=== PATIENT | female | born 1950 | race African-American/Black ===

== ENCOUNTER 2016-06-15 14:14 | Emergency (ER) | payer MEDICARE ==
[2016-05-28 08:36] VITALS: BMI 23.3
[~2016-06-15 14:14] MED LIST: ADVAIR 500/501 DISK INH; BAYER CHEWABLE81 MG PO; BENZONATATE200 MG PO; BUTALB-APAP-CA1 EACH PO; CARDIZEM CD120 MG PO; CHILDREN'S ASPI81 MG PO; COUMADIN5 MG PO; CRESTOR10 MG PO; CYCLOBENZAPRINE10 MG PO; FLUTICASONE PRO16 GM NASAL; FUROSEMIDE20 MG PO; HYDROCODONE-APA1 TAB PO; ISOSORBIDE MONO30 M1 PO; LEVAQUIN500 MG PO; LISINOPRIL-HCTZ1 T11 PO; METOPROLOL TART50 MG PO; MUCINEX DM ER1 EAC1 PO; NAMENDA10 MG PO; NITROSTAT0.4 MG SL; PLAVIX75 MG PO; PROTONIX40 MG PO; PROVENTIL/2.5 MG/3 M INH; SINGULAIR10 MG PO; SPIRIVA18 MCG INH; ZESTRIL20 MG PO
[2016-06-15 15:12] LABS: BASOPHILS 0.4 % (0.0-2.0); EOSINOPHILS 0.9 % (0-7); HEMATOCRIT 40.1 % (36.0-48.0); HEMOGLOBIN 13.5 g/dL (12-16); IMMATURE GRANULOCYTES 0.3 % (0-5); LYMPHOCYTES 28.7 % (15-50); MCH 29.9 pg (26.0-34.0); MCHC 33.7 g/dL (31.0-37.0); MCV 88.9 fL (80.0-100.0); MEAN PLATELET VOLUME 12.7 fL (7.4-10.4); MONOCYTES 9.5 % (2-11); NEUTROPHILS 60.2 % (40-80); PLATELET COUNT 215 10x3/uL (130-400); RBC 4.51 10x6/uL (4.00-5.40); RDW 13.4 % (11.5-14.5); WBC 6.7 10x3/uL (4.8-10.8)
[2016-06-15 16:31] LABS: ALBUMIN 3.1 g/dL (3.4-5.0); ALKALINE PHOSPHATASE 83 U/L (46-116); ALT (SGPT) 22 U/L (10-68); BILIRUBIN - TOTAL 0.25 mg/dL (0.2-1.3); CALC OSMOLALITY 277 mosm/kg (275-300); CALCIUM 8.9 mg/dL (8.5-10.1); CHLORIDE - SERUM 102 mmol/L (98-107); CHOL - HDL RATIO 2.1 ratio (2.3-4.1); CHOLESTEROL, TOTAL 131 mg/dL (0-200); CKMB 0.6 U/L (0.0-3.6); CREATINE KINASE 56 UL (21-215); CREATININE - SERUM 0.7 mg/dL (0.6-1.3); GLUCOSE 89 mg/dL (74-106); HDL CHOLESTEROL 64 mg/dL (32-96); LDL CHOLESTEROL 58 mg/dL (0-100); LDL-HDL RATIO 0.9 ratio (1.5-3.5); PROTEIN - SERUM 7.3 g/dL (6.4-8.2); SODIUM 141 mmol/L (136-145); TRIGLYCERIDE 49 mg/dL (30-200); TROPONIN-I 0.055 ng/mL (0.000-0.060); UREA NITROGEN 8 mg/dL (7-18); eGFR NON AFRICAN AMERICAN 88 mL/min (90-120)
[2016-06-15 16:32] LABS: POTASSIUM - SERUM 2.7 mmol/L (3.5-5.1)
== END 2016-06-15 17:25 | disposition home or self-care (01) ==
LOC: D.ER 14:14
PROVIDERS: Emergency Medicine
DX: R07.9 Chest pain, unspecified (principal); I25.10 Atherosclerotic heart disease of native coronary artery without angina pectoris; J44.9 Chronic obstructive pulmonary disease, unspecified; R00.1 Bradycardia, unspecified; F17.200 Nicotine dependence, unspecified, uncomplicated; I49.1 Atrial premature depolarization

== ENCOUNTER 2016-08-13 08:22 | Inpatient (IN) | payer MEDICARE, MEDICAID ==
[~2016-08-13] VITALS: Ht 157.5 cm; Wt 63.3 kg
--- NOTE | ~2016-08-13 | HEMODYNAMI ---
PATIENT:WINNIE LEE MEDICAL RECORD: [id number] : 48 [facility] [id number] ADMISSION DATE: 08/13/16 Generatedon:08/13/201613:26 Patient name: WINNIE LEE Patient #: [id number] SSN: [id number] : 1950 Date of study: 08/13/2016 Page: Of Hemodynamic Procedure Report Patient Data Patient Demographics Procedure consent was obtained First Name: WINNIE Gender: Female Last Name: ROSA : 1950 [facility] Initial: STACIE Age: 66 year(s) Patient #: [id number] Race: Black SSN: [id number] Additional ID: [id number] Contact details Address: [address] [place] [address] State: [place] City: [facility] Zip code: [address] Past Medical History History of disease Date Diagnosis Comments CAD COPD Hypertension Allergies Allergen Reaction Date Comments Reported Other allergy 10/19/2015 Prednisone, Tomato Other allergy 05/25/2016 tomatos Other allergy 05/28/2016 prednisone, tomatoes Other allergy 08/13/2016 Prednisone,Tomatoes Admission Admission Data Admission Date: 08/13/2016 Admission Time: 11:07 Arrival Date: 08/13/2016 Arrival Time: 0:00 Admit Source: Other Insurance Payor: Medicare Room #: D.2114 Height (in.): 61.81 BSA: 1.58 (m2) Height (cm.): 157 BMI: 23.55 (kg/m2) Weight (lbs.): 128 Weight (kg.): 58.06 Lab Results Lab Result Date: 08/13/2016 Lab Result Time: 0:00 Biochemistry Name Units Result Min Max BUN mg/dl 11 --(-*--)-- 7 18 Creatinine mg/dl 0.7 --(*---)-- 0.6 1.3 CBC Name Units Result Min Max Hemoglobin g/dl 12.7 -*(----)-- 13.5 17.5 Procedure Procedure Types Cath Procedure Diagnostic Procedure [facility] w/Coronaries FFR/IVUS Intra-Coronary IVUS Initial PCI Procedure Coronary Stent Initial Miscellaneous Procedures Moderate Sedation up to 15 minutes Procedure Description Procedure Date Procedure Date: 08/13/2016 Procedure Start Time: 13:04 Procedure End Time: 13:23 Procedure Staff Name Function Spencer Galvan MD Performing Physician Paulo Acosta RT Scrub Maggie Lucas RN Nurse Tracy Saldana RT Monitor Procedure Data Cath Procedure Fluoroscopy Diagnostic fluoroscopy Total fluoroscopy Time: 3.3 time: 3.3 min min Diagnostic fluoroscopy Total fluoroscopy dose: 600 dose: 600 mGy mGy Contrast Material Contrast Material Type Amount (ml) Isovue 300 90 Entry Location Entry Primary Successful Side Size Upsize Upsize Entry Closure Succes sful Closure Location (Fr) 1 (Fr) 2 (Fr) Remarks Device Remarks Femoral Right 5 Fr 6 Fr Exoseal artery Short Estimated blood loss: 10 ml Diagnostic catheters Device Type Used For End Catheter Placement Cordis 5Fr Pigtail Procedure Catheter (MP) Cordis 5Fr JL 4.0 Left Coronary Catheter (MP) Angiography Cordis 5Fr 3DRC Catheter Procedure (MP) Procedure Complications No complications Procedure Medications Medication Administration Route Dosage Oxygen NC 2 l/min Lidocaine 2% added to field 20 Heparin Flush Bag added to field 2 bags (1000units/500ml NS) 0.9% NaCl I.V. 100 ml/hr Radial Cocktail added to field 1 syringe (Verapomil 2mg/Nitro 400mcg/Heparin 1500units) Versed I.V. 1 mg Fentanyl I.V. 50 mcg Versed I.V. 1 mg Fentanyl I.V. 50 mcg Versed I.V. 1 mg Fentanyl I.V. 50 mcg Heparin Bolus I.V. 4000 units Hemodynamics Rest BSA: 1.58 (m2) HGB: 12.7 (g/dl) O2 Consumption: Estimated: 146.44 (ml/min) O2 Co nsumption indexed: Estimated:92.68 (ml/min/m) Heart Rate: 69 (bpm) Snapshots Pre Cath Intra NCS Post Cath Vital Signs Time Heart Resp SPO2 etCO2 RU5skdy NIBP (mmHg) Rhythm Pain Sedation Rate (ipm) (%) (mmHg) (mmHg) Status Level (bpm) 12:46:20 67 24 96 0 0 Measuring NSR 0 (11) 10(A) , No pain 12:46:36 67 19 94 0 0 178/90(150) NSR 0 (11) 10(A) , No pain 12:51:00 54 17 98 0 0 174/76(137) NSR 0 (11) 10(A) , No pain 12:55:22 60 17 97 0 0 137/75(93) NSR 0 (11) 10(A) , No pain 12:59:32 57 16 98 0 0 123/73(87) NSR 0 (11) 10(A) , No pain 13:03:38 58 18 98 0 0 108/67(85) NSR 0 (11) 10(A) , No pain 13:07:35 53 16 97 0 0 98/84(91) NSR 0 (11) 9(A) , No pain 13:11:33 62 17 97 0 0 117/69(92) NSR 0 (11) 9(A) , No pain 13:15:41 62 16 97 0 0 104/62(78) NSR 0 (11) 9(A) , No pain 13:19:43 64 16 96 0 0 103/64(85) NSR 0 (11) 10(A) , No pain Medications Time Medication Route Dose Verified Delivered Reason Note s Effectiveness by by 12:51:40 Lidocaine 2% added 20ml Spencer Palmer for local to vial Cole Galvan MD anesthetic field 12:51:41 Oxygen NC 2 l/min Spencer Buffie used for Cole Lucas RN procedure 12:51:48 Heparin Flush added 2 bags Spencer Palmer used for Bag to Cole Galvan MD procedure (1000units/500ml field NS) 12:51:53 0.9% NaCl I.V. 100 Spencervandana Serrano Per physician ml/hr Cole Lucas RN 13:00:51 Radial Cocktail added 1 Spencer Palmer not used (Verapomil to syringe Cole Galvan MD 2mg/Nitro field 400mcg/Heparin 1500units) 13:01:10 Versed I.V. 1 mg Spencer Serrano for sedation Cole Lucas RN 13:01:17 Fentanyl I.V. 50 mcg Spencer Serrano for sedation Cole Lucas RN 13:05:23 Versed I.V. 1 mg Spencer Serrano for sedation Cole Lucas RN 13:05:29 Fentanyl I.V. 50 mcg Spencer Serrano for sedation Cole Lucas RN 13:08:24 Versed I.V. 1 mg Spencer Serrano for sedation Cole Lucas RN 13:08:29 Fentanyl I.V. 50 mcg Spencer Serrano for sedation Cole Lucas RN 13:11:14 Heparin Bolus I.V. 4000 Spencer Serrano for veri fied units Cole Lucas RN anticoagulation with dr galvan Procedure Log Time Note 12:17:33 Diagnostic Cath status Elective 12:17:40 Maggie Lucas RN sent for patient. Start room use. 12:17:42 Time tracking: Regular hours 12:17:47 Plan of Care:Hemodynamics will remain stable., Cardiac rhythm will remain stable., Comfort level will be maintained., Respiratory function will remain adequate., Patient/ family verbilizes understanding of procedure., Procedure tolerated without complication., Recovers from procedure without complications.. 12:17:54 Patient received from Med II to CCL 1 Alert and oriented. Tansferred to table in Supine position. 12:36:20 Patient allergic to Other allergyPrednisone,Tomatoes 12:36:27 Warm blankets applied, and stephanie hugger turned on for patient comfort. 12:36:28 Correct patient and procedure confirmed by team. 12:36:30 Signed procedure consent form obtained from patient. 12:36:31 ECG and BP/O2 sat monitors applied to patient. 12:36:31 Vital chart was started 12:37:16 Baseline sample Acquired. 12:37:23 Rhythm: sinus rhythm 12:37:30 Full Disclosure recording started 12:38:35 H&P Date Dictated: 08/13/2016 New H&P dictated by physician.. 12:38:36 Pre-procedure instructions explained to patient. 12:38:37 Pre-op teaching completed and patient verbalized understanding. 12:38:38 Family in waiting room. 12:38:40 Patient NPO since Midnight. 12:38:43 Is the patient allergic to Iodine/contrast media? No. 12:38:45 Was the patient premedicated? No 12:39:50 Is patient on blood thinner?Yes 12:39:53 ACC The patient was administered the following blood thiners within the last 24 hours: ACCPlavix 12:39:57 Patient diabetic? No. 12:40:05 Previous problem with sedation/anesthesia? No ? 12:40:07 Snore? Yes 12:40:12 Sleep apnea? No 12:43:09 Deviated septum? No 12:44:08 Patient Weight : 128 lbs 12:44:14 Patient Height : 61.81 inches 12:44:22 Admit Source: Other 12:44:39 Airway obstruction? Yes COPD 12:44:52 Dentures? Yes out 12:45:09 Patient pain scale 0/10 ?. 12:45:48 IV patent on arrival in right forearm with 0.9% NaCl at [facility]. 12:46:23 Lab Result : Creatinine 0.7 mg/dl 12:46:23 Lab Result : BUN 11 mg/dl 12:46:23 Lab Result : Hemoglobin 12.7 g/dl 12:46:27 Lab results completed and on chart. 12:46:31 Right Radial & Right Groin area was prepped with chlora-prep and draped in sterile fashion 12:46:33 Alarms reviewed by R. N. 12:46:34 Alarms reviewed by R. N. 12:46:40 Sharps counted by scrub and verified by R.N. 12:46:42 Physician paged 12:47:48 Use device set Radial Dx 12:47:50 Acist Syringe opened to sterile field. 12:47:50 Medline Cath Pack opened to sterile field. 12:47:51 Bag Decanter opened to sterile field. 12:47:51 Terumo 6Fr Slender Glidesheath opened to sterile field. 12:47:52 St Isai 260cm J .035 wire opened to sterile field. 12:47:53 Acist Hand Control opened to sterile field. 12:47:53 Acist Manifold opened to sterile field. 12:47:53 Tegaderm 4 x 4 opened to sterile field. 12:51:40 Lidocaine 2% 20ml vial added to field was given by Spencer Galvan MD; for local anesthetic; 12:51:41 Oxygen 2 l/min NC was given by Maggie Lucas RN; used for procedure; 12:51:48 Heparin Flush Bag (1000units/500ml NS) 2 bags added to field was given by Spencer Galvan MD; used for procedure; 12:51:53 0.9% NaCl 100 ml/hr I.V. was given by Maggie Lucas RN; Per physician; 12:58:33 Zero performed for pressure channel P1 12:58:42 Zero performed for pressure channel P1 12:59:10 Physician arrived 12:59:16 --------ALL STOP TIME OUT------ 12:59:17 Final Timeout: patient, procedure, and site verified with staff and physician. All members of the team are in agreement. 12:59:22 Right Radial & Right Groin site verified by team. 12:59:27 Physical assessment completed. ASA score P 2 - A patient with mild systemic disease as per Spencer Galvan MD. 12:59:31 Sedation plan: IV Moderate Sedation Versed, Fentanyl 13:00:51 Radial Cocktail (Verapomil 2mg/Nitro 400mcg/Heparin 1500units) 1 syringe added to field was given by Spencer Galvan MD; ; not used 13:01:10 Versed 1 mg I.V. was given by Maggie Lucas RN; for sedation; 13:01:17 Fentanyl 50 mcg I.V. was given by Maggie Lucas RN; for sedation; 13:03:58 Procedure started. 13:04:06 Local anesthetic to right radial artery with Lidocaine 2% by Spencer Galvan MD.INITIAL ACCESS ONLY 13:04:48 Insurance Payor : Medicare 13:04:51 Arrival Date: 08/13/2016 12:00:00 AM 13:05:09 Procedure type changed to Cath procedure, Diagnostic procedure, LHC, LHC w/Coronaries, FFR/IVUS, Intra-Coronary IVUS Initial, PCI procedure, Coronary Stent Initial, Miscellaneous Procedures, Moderate Sedation up to 15 minutes 13:05:23 Versed 1 mg I.V. was given by Maggie Lucas RN; for sedation; 13:05:29 Fentanyl 50 mcg I.V. was given by Maggie Lucas RN; for sedation; 13:06:10 Local anesthetic to right femoral artery with Lidocaine 2% by Spencer Galvan MD.ADDITIONAL ACCESS 13:07:01 Use device set Multipack Set 13:07:10 Diagnostic Infinity 5Fr Multipack catheter opened to sterile field. 13:07:17 Terumo 5Fr [place]ockley Sheath opened to sterile field. 13:07:29 A 5 Fr sheath was inserted into the Right Femoral artery 13:07:55 A Cordis 5Fr Pigtail Catheter (MP) was advanced over the wire and used for Procedure. 13:08:06 LV angiography performed. 13:08:19 EF : 60 % 13:08:24 Versed 1 mg I.V. was given by Maggie Lucas RN; for sedation; 13:08:29 Fentanyl 50 mcg I.V. was given by Maggie Lucas RN; for sedation; 13:08:32 A Cordis 5Fr JL 4.0 Catheter (MP) was advanced over the wire and used for Left Coronary Angiography. 13:10:34 Catheter removed. 13:10:55 A Cordis 5Fr 3DRC Catheter (MP) was advanced over the wire and used for Procedure. 13:11:14 Heparin Bolus 4000 units I.V. was given by Maggie Lucas RN; for anticoagulation; verified with dr galvan 13:11:29 RCA angiography performed. 13:11:35 Terumo 6Fr Hockley Sheath opened to sterile field. 13:11:36 Palmer Whisper J 300cm 0.014 guide wire opened to sterile field. 13:11:36 ahoyDocixCompak Inflation Kit opened to sterile field. 13:11:39 Proceeding to intervention. 13:11:57 Sheath upsized to a 6 Fr Short. 13:12:12 ACC PCI Site: [facility] has 80% stenosis. 13:12:28 6 Fr XBLAD 3.5 guide catheter was inserted over the wire 13:12:37 Whisper wire advanced. 13:13:08 [place] IVUS Catheter opened to sterile field. 13:14:17 Wire advanced across lesion. 13:14:23 IVUS catheter advanced over wire. 13:15:35 IVUS catheter removed over wire. 13:17:06 Inflation Number: 1 A Medtronic Resolute 3.0 X 22 stent was prepped and advanced across the Mid CX. The stent was deployed at 19 ASHLEY for 0:10 (min:sec). 13:17:12 Inflation number: 2 The stent balloon was then re-inflated across the Mid CX to 19 ASHLEY for 0:00 (min:sec). 13:17:56 Stent catheter was removed intact over wire. 13:17:57 Wire removed. 13:17:58 Guide catheter removed. 13:19:52 Cordis 6Fr Exoseal opened to sterile field. 13:20:09 Sheath removed intact; hemostasis achieved with Exoseal to the Right Femoral artery. 13:20:11 Procedure ended.(Physican Out) 13:20:27 Fluoroscopy time 03.30 minutes. 13:20:45 Fluoroscopy dose: 600 mGy 13:20:45 Flurop Dose total: 600 13:20:52 Contrast amount:Isovue 300 90ml. 13:20:55 Sharps counted by scrub and verified by R.N. 13:21:00 Insertion/operative site no bleeding no hematoma. 13:21:06 Post-op/insertion site Right Femoral artery dressed using a 4 x 4 and Tegaderm. 13:21:09 Post Procedure Pulses reassessed and unchanged 13:21:16 Post-procedure physical assessment completed. ASA score P 3 - A patient with severe systemic disease as per Spencer Galvan MD. 13:21:20 Post procedure rhythm: unchanged. 13:21:24 Estimated blood loss: 10 ml 13:21:26 Post procedure instruction explained to patient.Patient verbalizes understanding. 13:22:07 Procedure and supply charges have been captured, reviewed, submitted and are correct. 13:22:59 Procedure Complication : No complications 13:23:02 Vital chart was stopped 13:23:03 See physician's report for complete and final results. 13:23:07 Report given to [facility]. 13:23:11 Patient transfered to [facility] II with Stretcher. 13:23:13 Procedure ended. 13:23:13 Full Disclosure recording stopped 13:23:17 End room use (Document Last) Intervention Summary Intervention Notes Time ActionType Lesion and Equipment Action# Pressure Duration Attributes Used 13:17:06 Place stent Mid CX Medtronic 1 19 00:10 Resolute 3.0 X 22 stent 13:17:12 Reinflate Mid CX Medtronic 2 19 00:00 stent Resolute balloon 3.0 X 22 stent Device Usage Item Name Manufacture Quantity Catalog Hospital Part Current Minimal Lot# / Number Charge Number Stock Stock Serial# Code Acist Acist 1 [id number] 629015 758529 20 [employer] Medline Cardinal 1 [id number] 704578 12682 822306 5 Cath Pack Health Bag Microtek 1 [facility] [id number] 48639 707504 5 [employer] Terumo 6Fr Terumo 1 [id number] 846822 788025 356874 [address] Isai St Isai 1 124264 577515 139335 606179 30 260cm J .035 wire Acist Hand Acist 1 28524 652708 811950 633867 5 [employer] Inc Acist Acist 1 98208 484478 726919 206076 5 [employer] Inc Tegaderm 4 3M 1 [id number] 529190 383445 369272 5 x 4 Diagnostic Cardinal 1 [id number] 919986 91119 863916 30 Infinity Health 5Fr Multipack catheter Terumo 5Fr Terumo 1 SAR332 023280 344082 661888 40 Hockley Sheath Cordis 5Fr Cardinal 1 857567 5 Pigtail Health Catheter (MP) Cordis 5Fr Cardinal 1 913445 5 JL 4.0 Health Catheter (MP) Cordis 5Fr Cardinal 1 425124 5 3DRC Health Catheter (MP) Terumo 6Fr Terumo 1 RES544 304773 778168 257005 40 Hockley Sheath Palmer Palmer 1 [id number] 681393 757770 837218 5 Whisper J Vascular 300cm 0.014 guide wire Merit Merit 1 [id number] 387509 803195 387331 15 [facility] Inflation Kit [place] 1 [id number] 037840 809311 720458 8 [place] IVUS Catheter Medtronic Medtronic 1 [id number] 755975 7 [id number] Resolute 3.0 X 22 stent Cordis 6Fr Cardinal 1 [id number] 332825 328600 395804 10 [facility] [employer] Signature Audit [place] Stage Time Signature Unsigned Intra-Procedure 08/13/2016 Tracy Saldana 1:26:16 PM RT(R) Signatures Monitor : Tracy Saldana Signature : RT Date : Time : [facility] [address] [place] [address]
--- NOTE | ~2016-08-13 | HEMODYNAMI ---
PATIENT:WINNIE LEE MEDICAL RECORD: [id number] : 48 [id number] ADMISSION DATE: 08/13/16 Generatedon:08/14/201610:24 Patient name: WINNIE LEE Patient #: [id number] SSN: [id number] : 1950 Date of study: 08/14/2016 Page: Of Hemodynamic Procedure Report Patient Data Patient Demographics Procedure consent was obtained First Name: WINNIE Gender: Female Last Name: ROSA : 1950 [facility] Initial: STACIE Age: 66 year(s) Patient #: [id number] Race: Black SSN: [id number] Additional ID: [id number] Contact details Address: [address] [place] [address] State: [place] City: [facility] Zip code: [address] Past Medical History History of disease Date Diagnosis Comments CAD COPD Hypertension Allergies Allergen Reaction Date Comments Reported Other allergy 10/19/2015 Prednisone, Tomato Other allergy 05/25/2016 tomatos Other allergy 05/28/2016 prednisone, tomatoes Other allergy 08/13/2016 Prednisone,Tomatoes Admission Admission Data Admission Date: 08/13/2016 Admission Time: 16:40 Arrival Date: 08/13/2016 Arrival Time: 0:00 Admit Source: Other Insurance Payor: Medicare Room #: D.2114 Height (in.): 61.81 BSA: 1.58 (m2) Height (cm.): 157 BMI: 23.55 (kg/m2) Weight (lbs.): 128 Weight (kg.): 58.06 Lab Results Lab Result Date: 08/13/2016 Lab Result Time: 0:00 Biochemistry Name Units Result Min Max BUN mg/dl 11 --(-*--)-- 7 18 Creatinine mg/dl 0.7 --(*---)-- 0.6 1.3 CBC Name Units Result Min Max Hemoglobin g/dl 12.7 -*(----)-- 13.5 17.5 Procedure Procedure Types Cath Procedure PCI Procedure Coronary Stent Initial Miscellaneous Procedures Moderate Sedation up to 15 minutes Procedure Description Procedure Date Procedure Date: 08/14/2016 Procedure Start Time: 10:09 Procedure End Time: 10:22 Procedure Staff Name Function Spencer Galvan MD Performing Physician Anila Winslow RN Nurse Jalen Patel RT Monitor Mansoor Mendez RT Excel Developer Farhan Velásquez RT Scrub Procedure Data Cath Procedure Fluoroscopy Diagnostic fluoroscopy Total fluoroscopy Time: 2.5 time: 2.5 min min Diagnostic fluoroscopy Total fluoroscopy dose: 155 dose: 155 mGy mGy Contrast Material Contrast Material Type Amount (ml) Isovue 300 54 Entry Location Entry Primary Successful Side Size Upsize Upsize Entry Closure Succes sful Closure Location (Fr) 1 (Fr) 2 (Fr) Remarks Device Remarks Femoral Left 6 Fr Exoseal artery Short Estimated blood loss: 10 ml Procedure Complications No complications Procedure Medications Medication Administration Route Dosage Oxygen NC 2 l/min Heparin Flush Bag added to field 2 bags (1000units/500ml NS) Lidocaine 2% added to field 20 Fentanyl I.V. 50 mcg Versed I.V. 1 mg Fentanyl I.V. 50 mcg Versed I.V. 1 mg Fentanyl I.V. 50 mcg Heparin Bolus I.V. 4000 units Hemodynamics Rest BSA: 1.58 (m2) HGB: 12.7 (g/dl) O2 Consumption: Estimated: 138.82 (ml/min) O2 Co nsumption indexed: Estimated:87.86 (ml/min/m) Heart Rate: 57 (bpm) Snapshots Pre Cath Intra NCS Post Cath Vital Signs Time Heart Resp SPO2 NIBP (mmHg) Rhythm Pain Status Sedation Rate (ipm) (%) Level (bpm) 9:41:52 56 13 96 185/82(144) SB 10 (11) , 10(A) Unimaginable unspeakable 9:46:15 56 32 95 157/87(132) SB 10 (11) , 10(A) Unimaginable unspeakable 9:50:31 55 16 96 162/75(126) SB 5 (11) , 10(A) Very distressing 9:54:44 54 15 96 152/84(116) SB 3 (11) , 10(A) Tolerable 9:58:58 54 16 95 135/76(106) SB 0 (11) , No 10(A) pain 10:03:06 53 16 95 141/75(110) SB 0 (11) , No 10(A) pain 10:07:16 53 14 97 134/74(105) SB 0 (11) , No 10(A) pain 10:11:24 51 14 98 124/71(105) SB 0 (11) , No 9(A) pain 10:15:28 57 16 98 102/71(89) SB 0 (11) , No 9(A) pain 10:18:30 55 16 95 119/77(114) SB 0 (11) , No 9(A) pain 10:22:32 55 16 95 129/73(107) SB 0 (11) , No 9(A) pain Medications Time Medication Route Dose Verified Delivered Reason Notes Effectiveness by by 9:38:51 Oxygen NC 2 Spencer Anila Per l/min Cole Winslow RN physician 9:38:59 Heparin Flush added 2 Spencer Spencer used for Bag to bags Cole Galvan MD procedure (1000units/500ml field NS) 9:39:21 Lidocaine 2% added 20ml Spencer Spencer used for to vial Cole Galvan MD procedure field 9:48:07 Fentanyl I.V. 50 Spencer Anila for back mcg Cole Winslow RN pain 10:03:47 Versed I.V. 1 mg Spencer Anila for sedation Cole Winslow RN 10:03:54 Fentanyl I.V. 50 Spencer Anila for sedation mcg Cole Winslow RN 10:07:58 Versed I.V. 1 mg Psencer Anila for sedation Cole Winslow RN 10:08:01 Fentanyl I.V. 50 Spencer Anila for sedation mcg Cole Winslow RN 10:10:20 Heparin Bolus I.V. 4000 Spencer Anila for dose units Cole Winslow RN antiplatelet verified therapy [facility] dr galvan Procedure Log Time Note 9:15:39 Mansoor Mendez RT(R) (CV) sent for patient. Start room use. 9:29:47 Time tracking: Regular hours 9:29:51 Plan of Care:Hemodynamics will remain stable., Cardiac rhythm will remain stable., Comfort level will be maintained., Respiratory function will remain adequate., Patient/ family verbilizes understanding of procedure., Procedure tolerated without complication., Recovers from procedure without complications.. 9:33:27 Patient received from PCU to CCL 2 Alert and oriented. Tansferred to table in Supine position. 9:33:29 Warm blankets applied, and stephanie hugger turned on for patient comfort. 9:33:29 Correct patient and procedure confirmed by team. 9:33:30 Signed procedure consent form obtained from patient. 9:33:31 ECG and BP/O2 sat monitors applied to patient. 9:38:51 Oxygen 2 l/min NC was given by Anila Winslow RN; Per physician; 9:38:59 Heparin Flush Bag (1000units/500ml NS) 2 bags added to field was given by Spencer Galvan MD; used for procedure; 9:39:21 Lidocaine 2% 20ml vial added to field was given by Spencer Galvan MD; used for procedure; 9:40:44 Vital chart was started 9:48:07 Fentanyl 50 mcg I.V. was given by Anila Winslow RN; for back pain; 9:49:21 Baseline sample Acquired. 9:49:35 Rhythm: sinus rhythm 9:49:37 Full Disclosure recording started 9:49:43 H&P Date Dictated: 08/13/2016 Within 30 days and on chart.. 9:49:44 Pre-procedure instructions explained to patient. 9:49:45 Pre-op teaching completed and patient verbalized understanding. 9:49:46 Family in waiting room. 9:49:48 Patient NPO since Midnight. 9:49:50 Is the patient allergic to Iodine/contrast media? No. 9:49:55 Is patient on blood thinner?Yes 9:49:58 ACC The patient was administered the following blood thiners within the last 24 hours: ACCPlavix 9:50:07 Patient diabetic? No. 9:54:28 Patient not . Patient is over age 55. 9:54:30 Previous problem with sedation/anesthesia? No ? 9:54:31 Snore? Yes 9:55:27 Sleep apnea? No 9:55:29 Deviated septum? No 9:55:30 Opens mouth fully? Yes 9:55:32 Sticks out tongue? Yes 9:55:35 Airway obstruction? Yes COPD 9:55:39 Dentures? Yes OUT 9:55:43 Pre procedure: left dorsailis pedis pulse 1+ Palpable, but thready & weak; easily obliterated 9:55:46 Patient pain scale 0/10 ?. 9:55:56 IV patent on arrival in right forearm with 0.9% NaCl at [facility]. 9:56:06 Lab results completed and on chart. 9:56:09 Left groin area was prepped with chlora-prep and draped in sterile fashion 9:56:12 Alarms reviewed by R. N. 9:56:12 Sharps counted by scrub and verified by R.N. 9:56:16 Use device set Femoral PCI 9:56:18 Tegaderm 4 x 4 opened to sterile field. 9:56:19 Acist Manifold opened to sterile field. 9:56:20 Acist Syringe opened to sterile field. 9:56:21 Acist Hand Control opened to sterile field. 9:56:21 Bag Decanter opened to sterile field. 9:56:21 Medline Cath Pack opened to sterile field. 9:56:22 Terumo 6Fr [place] Sheath opened to sterile field. 9:56:22 St Isai 260cm J .035 wire opened to sterile field. 9:56:23 Merit BasixCompak Inflation Kit opened to sterile field. 9:56:32 Palmer Whisper J 300cm 0.014 guide wire opened to sterile field. 9:58:57 Baseline sample Acquired. 10:02:40 --------ALL STOP TIME OUT------ 10:02:41 Final Timeout: patient, procedure, and site verified with staff and physician. All members of the team are in agreement. 10:02:49 Left groin site verified by team. 10:02:52 Physical assessment completed. ASA score P 2 - A patient with mild systemic disease as per Spencer Galvan MD. 10:02:55 Sedation plan: IV Moderate Sedation Versed, Fentanyl 10:03:47 Versed 1 mg I.V. was given by Anila Winslow RN; for sedation; 10:03:54 Fentanyl 50 mcg I.V. was given by Anila Winslow RN; for sedation; 10:07:58 Versed 1 mg I.V. was given by Anila Winslow RN; for sedation; 10:08:01 Fentanyl 50 mcg I.V. was given by Anila Winslow RN; for sedation; 10::06 Zero performed for pressure channel P1 10:09:16 Procedure started. 10:09:20 Local anesthetic to left femerol artery with Lidocaine 2% by Spencer Galvan MD.INITIAL ACCESS ONLY 10:09:33 Medtronic Launcher 6Fr HS II SH guide catheter opened to sterile field. 10:10:12 A 6 Fr Short sheath was inserted into the Left Femoral artery 10:10:20 Heparin Bolus 4000 units I.V. was given by Anila Winslow RN; for antiplatelet therapy; dose verified wtih dr galvan 10:10:23 6 Fr HS 2 SH guide catheter was inserted over the wire 10:10:37 ACC PCI Site: Jude has 80% stenosis. 10:11:27 ACC Pre-intervention MYRIAM Flow is 3. 10:11:34 Whisper wire advanced. 10:13:00 Wire advanced across lesion. 10:13:04 Inflation Number: 1 A Medtronic Resolute 2.25 X 22 stent was prepped and advanced across the Dist RCA. The stent was deployed at 17 ASHLEY for 0:10 (min:sec). 10:13:22 Inflation number: 2 The stent balloon was then re-inflated across the Dist RCA to 21 ASHLEY for 0:10 (min:sec). 10:13:55 Inflation number: 3 The stent balloon was then re-inflated across the Dist RCA to 7 ASHLEY for 0:15 (min:sec). 10:14:28 Inflation number: 4 The stent balloon was then re-inflated across the Dist RCA to 13 ASHLEY for 0:15 (min:sec). 10:15:35 ACC Post-intervention MYRIAM Flow is 3. 10:15:36 Stent catheter was removed intact over wire. 10:15:38 Wire removed. 10:15:38 Guide catheter removed. 10:15:56 Cordis 6Fr Exoseal opened to sterile field. 10:16:11 Sheath removed intact; hemostasis achieved with Exoseal to the Left Femoral artery. 10:16:14 Procedure ended.(Physican Out) 10:16:50 Fluoroscopy time 02.50 minutes. 10:16:53 Fluoroscopy dose: 155 mGy 10:16:53 Flurop Dose total: 155 10:17:00 Contrast amount:Isovue 300 54ml. 10:17:03 Sharps counted by scrub and verified by R.N. 10:17:05 Insertion/operative site no bleeding no hematoma. 10:17:09 Post-op/insertion site Left Femoral artery dressed using a 4 x 4 and Tegaderm. 10:17:10 Post Procedure Pulses reassessed and unchanged 10:17:13 Post-procedure physical assessment completed. ASA score P 2 - A patient with mild systemic disease as per Spencer Galvan MD. 10:17:14 Post procedure rhythm: unchanged. 10:17:16 Estimated blood loss: 10 ml 10:17:17 Post procedure instruction explained to patient.Patient verbalizes understanding. 10:17:17 Patient needs reinforcement of post procedure teaching. 10:17:53 Procedure and supply charges have been captured, reviewed, submitted and are correct. 10:17:55 Procedure Complication : No complications 10:22:37 Vital chart was stopped 10:22:38 See physician's report for complete and final results. 10:22:40 Report given to PCU. 10:22:44 Patient transfered to PCU with Bed. 10:22:46 Procedure ended. 10:22:46 Full Disclosure recording stopped 10:23:08 ACC-PCI Only Patient was given prescriptions, or instructed by Spencer Galvan MD to start/continue the following medications upon discharge: Aspirin, Plavix 10:23:10 End room use (Document Last) Intervention Summary Intervention Notes Time ActionType Lesion and Equipment Action# Pressure Duration Attributes Used 10:13:04 Place stent Dist RCA Medtronic 1 17 00:10 Resolute 2.25 X 22 stent 10:13:22 Reinflate Dist RCA Medtronic 2 21 00:10 stent Resolute balloon 2.25 X 22 stent 10:13:55 Reinflate Dist RCA Medtronic 3 7 00:15 stent Resolute balloon 2.25 X 22 stent 10:14:28 Reinflate Dist RCA Medtronic 4 13 00:15 stent Resolute balloon 2.25 X 22 stent Device Usage Item Name Manufacture Quantity Catalog Hospital Part Current Minimal Lot# / Number Charge Number Stock Stock Serial# Code Tegaderm 4 1 [id number] [id number] 303619 5 x 4 Acist Acist 1 80747 267695 818804 [id number] 5 Manifold Medical Systems Inc Acist Acist 1 14970 816213 004425 061291 20 Syringe Medical Systems Inc Acist Hand Acist 1 89801 546847 414685 342845 5 Control Medical Systems Inc Bag Microtek 1 2002S 548804 27545 601221 5 Decanter Medical Inc. Medline Cardinal 1 [id number] 684521 39703 769046 5 Cath Pack Health Terumo 6Fr Terumo 1 [id number] 016807 554399 496935 [address] [place] [address] Isai 1 590361 837976 156214 836077 30 260cm J .035 wire Merit Merit 1 [id number] 104409 918222 675859 15 BasixCompak Medical Inflation Kit Palmer Palmer 1 [id number] 594249 975560 178801 5 Whisper J Vascular 300cm 0.014 guide wire Medtronic Medtronic 1 [id number] 757143 93013 774844 1 Launcher 6Fr HS II SH guide catheter Medtronic Medtronic 1 [id number] 552658 313687 7 [id number] Resolute 2.25 X 22 stent Cordis 6Fr Cardinal 1 EX600 484442 612327 827317 10 InsightSquared Signature Audit [place] Stage Time Signature Unsigned Intra-Procedure 08/14/2016 Jalen Patel 10:24:09 AM RT(R) Signatures Monitor : Jalen Patel RT Signature : Date : Time : [facility] [address] [place] [address]
[2016-08-13 09:13] LABS: BASOPHILS 0.4 % (0.0-2.0); EOSINOPHILS 1.6 % (0-7); HEMATOCRIT 38.4 % (36.0-48.0); HEMOGLOBIN 12.7 g/dL (12-16); IMMATURE GRANULOCYTES 0.1 % (0-5); LYMPHOCYTES 27.9 % (15-50); MCH 29.3 pg (26.0-34.0); MCHC 33.1 g/dL (31.0-37.0); MCV 88.7 fL (80.0-100.0); MEAN PLATELET VOLUME 11.9 fL (7.4-10.4); MONOCYTES 8.3 % (2-11); NEUTROPHILS 61.7 % (40-80); PLATELET COUNT 180 10x3/uL (130-400); RBC 4.33 10x6/uL (4.00-5.40); RDW 13.2 % (11.5-14.5)
[2016-08-13 09:46] LABS: ALBUMIN 3.1 g/dL (3.4-5.0); ALKALINE PHOSPHATASE 92 U/L (46-116); ALT (SGPT) 13 U/L (10-68); BILIRUBIN - TOTAL 0.25 mg/dL (0.2-1.3); CALC OSMOLALITY 277 mosm/kg (275-300); CALCIUM 8.4 mg/dL (8.5-10.1); CARBON DIOXIDE 26.9 mmol/L (21.0-32.0); CHLORIDE - SERUM 102 mmol/L (98-107); CREATININE - SERUM 0.7 mg/dL (0.6-1.3); GLUCOSE 112 mg/dL (74-106); POTASSIUM - SERUM 3.2 mmol/L (3.5-5.1); PROTEIN - SERUM 7.4 g/dL (6.4-8.2); SODIUM 139 mmol/L (136-145); UREA NITROGEN 11 mg/dL (7-18); eGFR NON AFRICAN AMERICAN 88 mL/min (90-120)
[2016-08-13 10:02] LABS: CKMB 0.7 U/L (0.0-3.6); CREATINE KINASE 58 UL (21-215)
[2016-08-13 10:08] LABS: TROPONIN-I 1.166 ng/mL (0.000-0.060)
--- NOTE | 2016-08-13 11:55 | NUR ---
RECEIVED PT FROM ER VIA W/C IN STABLE CONDITION RESP UNLABORED SKIN W/D COLOR WNL DENIES ANY NEEDS AT THIS TIME WILL CONTINUE TO MONITOR
[2016-08-13] MEDS ORDERED: ENDOCET 10-3251 TAB PO (12:04)
[2016-08-13 13:00] VITALS: BP 172/83; Ht 157.5 cm; Wt 63.3 kg
--- NOTE | 2016-08-13 14:02 | NUR ---
IV access-22 Gauge IV inserted in right hand, secondary to patient request to move IV from anatecubital. Tracy Marie RN
[2016-08-13 16:00] VITALS: BP 154/95
--- NOTE | 2016-08-13 19:25 | NUR ---
INITIAL ROUNDS MADE. PT SITTING UP IN BED WATCHING TV WITH FAMILY IN ROOM. DISCUSSED PLAN OF CARE AND NPO AFTER MN FOR [facility] IN AM. QUESTIONS ANSWERED. DENIES NEEDS OR C/O AT THIS TIME.
[2016-08-13 20:00] VITALS: BP 155/76
[2016-08-14] VITALS (10 sets, daily range): BP systolic 133–174; BP diastolic 60–80
--- NOTE | 2016-08-14 00:37 | NUR ---
SHIP ENGINES OPERATING ENGINEER AT BEDSIDE FOR VS, NEEDS ADDRESSED. CALL LIGHT IN REACH. WILL CONT TO MONITOR.
--- NOTE | 2016-08-14 06:29 | NUR ---
RESTING WELL, WATCHING TV. DENIES NEEDS, CONT TO MONITOR.
--- NOTE | 2016-08-14 07:30 | NUR ---
RECEIVED PT IN BED AAOX4 DENIES ANY NEEDS OR DISCOMFORT TELEMETRY INTACT SB RATE 54 SALINE LOCK INTACT RT HAND DRSG INTACT NO REDNESS OR EDEMA NOTED
--- NOTE | 2016-08-14 09:29 | NUR ---
TO NEUROSURGICAL NURSE VIA BED IN STABLE CONDITON
--- NOTE | 2016-08-14 10:35 | NUR ---
BACK FROM FABRICATION ENGINEER VIA BED IN STABLE CONDITION VSS LT GROIN WITH JUNIOR C/D/I SITE NOTED NO S/S OF BLEEDING NAD NOTED
--- NOTE | 2016-08-14 11:35 | NUR ---
Patient Name: WINNIE LEE Admission Status: ER Accout number: [id number] Admission Date: 08-13-2016 : 1950 Admission Diagnosis: Attending: QUENTIN Current LOS: 1 Anticipated DC Date: 08-14-2016 Planned Disposition: Home Primary Insurance: [employer]ARE ADV Discharge Planning Comments: * Is the patient Alert and Oriented? Yes 0 * How many steps to enter\exit or inside your home? 2 0 * PCP DR. PRIYANKA MASON 0 * Pharmacy [facility] 0 * Preadmission Environment Home with Family 0 * ADLs Independent 0 * Equipment Nebulizer 0 * Other Equipment NO MEDICAL EQUIPMENT PROVIDER PREFERENCE 0 * List name and contact numbers for known caregivers / representatives who currently or will assist patient after discharge: TRAN LEE, SON, 0 * Community resources currently utilized None 0 * Please name any agencies selected above. NONE 0 * Additional services required to return to the preadmission environment? No 0 * Can the patient safely return to the preadmission environment? Yes 0 * Has this patient been hospitalized within the prior 30 days at any hospital? No 0 CM MET WITH PT AND FAMILY IN ROOM TO DISCUSS DISCHARGE PLANNING AND NEEDS. PT JUST BACK FROM [employer], PT'S SON AND DAUGHTER ANSWERED ALL QUESTIONS. PT'S SON REPORTS LIVING AT HOME WITH THE PT WHO IS INDEPENDENT IN HER CARE. PT HAS A NEBULIZER ONLY WITH NO MEDICAL EQUIPMENT PROVIDER PREFERENCE. PT HAS NO OUTSIDE SERVICES ASSISTING IN THE HOME. CM DISCUSSED AVAILABILITY OF HOME HEALTH, REHAB SERVICES AND MEDICAL EQUIPMENT. PT'S FAMILY DENY DISCHARGE NEEDS, PT'S SON IS HERE TO TAKE PT HOME AND WILL ASSIST IF NEEDED. IMPORTANT MESSAGE FROM MEDICARE PROVIDED AND EXPLAINED. Court Stenographer: Giorgio Pond
--- NOTE | 2016-08-20 10:08 | OP ---
PATIENT NAME: WINNIE LEE MEDICAL RECORD: [id number] :[birth year] LOCATION:D.M2 D.2114 ADMISSION DATE:08/13/16 SURGEON: JESIKA ARVIZU MD DATE OF OPERATION: 08/13/2016 PROCEDURES: 1. PTCA stent left circumflex. 2. Intravascular ultrasound of left circumflex. 3. Left heart catheterization. 4. Selective coronary angiography. 5. Left ventriculogram. INDICATION: Non-Q-wave myocardial infarction, angina and coronary artery disease. PROCEDURE: After informed consent was obtained and after detailed explanation of risks, benefits as well as alternative therapies, the patient elected to proceed with angiogram and angioplasty. The right femoral area was prepped and draped in normal sterile fashion. The right femoral artery was cannulated via modified Seldinger technique with placement of 6-Frisian sheath. All catheters exchanged through this sheath. FINDINGS: Left ventriculogram was performed in standard 30-degree PETE view, reveals good cardiac wall motion throughout all segments. Overall ejection fraction estimated at 60%. SELECTIVE CORONARY ANGIOGRAPHY: 1. Left main is with no significant angiographic disease. Previously placed stent is widely patent. 2. Left anterior descending has moderate irregularities, but no flow-limiting stenosis. Previously placed stents are widely patent. 3. Left circumflex has a long area of 73% stenosis in the mid vessel. 4. The right coronary has previously placed stents. There is up to 80% in-stent restenosis distally. PTCA STENT OF THE LEFT CIRCUMFLEX: The stent used a 3.0 x 22 mm Resolute taken to 19 atmospheres. Result was 0% residual stenosis. OVERALL IMPRESSION: Successful percutaneous transluminal coronary angioplasty stent of the left circumflex going from 73% initial stenosis to 0% residual. PLAN: PTCA stent of the RCA in the near future. TRANSINT:[id number] Voice Confirmation ID: [id number] DOCUMENT ID: [id number] JESIKA ARVIZU MD at 1008 CC: [id number] DICTATION DATE: 08/13/16 1321 ASSISTANT HVAC MECHANIC: 08/13/16 1942 DIS IN 08/14/16 [facility] [address] [place] [address]
--- NOTE | 2016-08-20 10:08 | DS ---
PATIENT:WINNIE AZUL :[birth year] MEDICAL RECORD: [id number] DISCHARGE SUMMARY ADMISSION DATE: 08/13/16 DISCHARGE DATE: 08/14/16 DATE OF DISCHARGE: 08/14/2016 DISCHARGE DIAGNOSES: 1. Angina. 2. Coronary artery disease. 3. Percutaneous transluminal coronary angioplasty stent of the left circumflex and right coronary artery this admission. HOSPITAL COURSE: Mrs. Azul presents with anginal symptomatology, found to have 2-vessel coronary artery disease, underwent successful PTCA stent of above territories with drug-eluting stent and had an uneventful postop course and was discharged home with the addition of aspirin and Plavix to her medical regimen. We will follow up with [facility] in 1 month. TRANSINT:[id number] Voice Confirmation ID: [id number] DOCUMENT ID: [id number] JESIKA ARVIZU MD at 1008 CC: [id number] DICTATION DATE: 08/14/16 1019 GUEST SPECIALIST: 08/14/16 1440 DIS IN 08/14/16 [place] [id number] [place] [id number]
--- NOTE | 2016-08-20 10:08 | OP ---
PATIENT NAME: WINNIE LEE MEDICAL RECORD: [id number] :[birth year] LOCATION:D.M2 D.2114 ADMISSION DATE:08/13/16 SURGEON: JESIKA ARVIZU MD DATE OF OPERATION: 08/14/2016 PROCEDURES: 1. PTCA stent RCA. 2. Selective coronary angiography. INDICATION: Angina and coronary artery disease. PROCEDURE IN DETAIL: After informed consent was obtained and after detailed explanation of risks, benefits as well as alternative therapies, the patient elected to proceed with angiogram and angioplasty. The left femoral area was prepped and draped in normal sterile fashion. Left femoral artery was cannulated via modified Seldinger technique with placement of 6-Bruneian sheath. All catheters exchanged through this sheath. FINDINGS: The right coronary has 80% stenosis throughout the distal vessel was covered with a 2.25 x 22 mm Resolute stent taken to 17 atmospheres. Result was 0% residual stenosis. OVERALL IMPRESSION: Successful percutaneous transluminal coronary angioplasty stent of the right coronary artery going from 80% initial stenosis to 0% residual. TRANSINT:[id number] Voice Confirmation ID: [id number] DOCUMENT ID: [id number] JESIKA ARVIZU MD at 1008 CC: [id number] DICTATION DATE: 08/14/16 1020 DAY WORKER: 08/14/16 1137 DIS IN 08/14/16 [place] [id number] [place] [id number]
--- NOTE | 2016-09-06 08:41 | DS ---
PATIENT:WINNIE AZUL :[birth year] MEDICAL RECORD: [id number] DISCHARGE SUMMARY ADMISSION DATE: 08/13/16 DISCHARGE DATE: 08/14/16 DATE OF DISCHARGE: 08/14/2016 DIAGNOSES: 1. Angina. 2. Coronary artery disease. 3. Percutaneous transluminal coronary angioplasty stent right coronary artery this admission. HOSPITAL COURSE: Mrs. Azul presents with anginal symptomatology, found to have single vessel disease to the RCA, underwent successful PTCA stent of the RCA. She had an uneventful postop course. She was discharged home with the addition of aspirin and Plavix to her medical regimen. TRANSINT:[id number] Voice Confirmation ID: [id number] DOCUMENT ID: [id number] JESIKA ARVIZU MD at 0841 CC: [id number] DICTATION DATE: 09/04/16 1450 VIDEO SURVEILLANCE TECHNICIAN: 09/05/16 0257 DIS IN 08/14/16 [place] [id number] [place] [address]
== END 2016-08-14 15:30 | disposition home or self-care (01) | DRG 247 ==
LOC: D.ER 08:22 → D.M2 11:07 → OBSVTIME 11:07 → D.M2 11:07 → D.SDCHOLD 08-14 12:16 → D.M2 08-14 15:30
PROVIDERS: Emergency Medicine; ADMIT Internal Medicine Interventional Cardiology
PROC: 4A023N7 Measurement of Cardiac Sampling and Pressure, Left Heart, Percutaneous Approach (ICD-10-PCS; 2016-08-13)
PROC: B2111ZZ Fluoroscopy of Multiple Coronary Arteries using Low Osmolar Contrast (ICD-10-PCS; 2016-08-13)
PROC: B2151ZZ Fluoroscopy of Left Heart using Low Osmolar Contrast (ICD-10-PCS; 2016-08-13)
PROC: B240ZZ3 Ultrasonography of Single Coronary Artery, Intravascular (ICD-10-PCS; 2016-08-13)
PROC: 027034Z Dilation of Coronary Artery, One Artery with Drug-eluting Intraluminal Device, Percutaneous Approach (ICD-10-PCS; principal; 2016-08-13 11:00)
PROC: 027034Z Dilation of Coronary Artery, One Artery with Drug-eluting Intraluminal Device, Percutaneous Approach (ICD-10-PCS; 2016-08-14)
DX: I21.4 Non-ST elevation (NSTEMI) myocardial infarction (principal); I25.119 Atherosclerotic heart disease of native coronary artery with unspecified angina pectoris

== ENCOUNTER 2016-08-24 11:17 | Emergency (ER) | payer MEDICARE, MEDICAID ==
[2016-08-13 13:00] VITALS: BMI 23.4
[~2016-08-24 11:17] MED LIST changes: +ENDOCET 10-3251 TAB PO
[2016-08-24 12:17] LABS: BASOPHILS 0.3 % (0.0-2.0); EOSINOPHILS 1.4 % (0-7); HEMATOCRIT 35.6 % (36.0-48.0); HEMOGLOBIN 11.5 g/dL (12-16); LYMPHOCYTES 35.2 % (15-50); MCH 28.8 pg (26.0-34.0); MCHC 32.3 g/dL (31.0-37.0); MCV 89.2 fL (80.0-100.0); MEAN PLATELET VOLUME 11.6 fL (7.4-10.4); MONOCYTES 7.8 % (2-11); NEUTROPHILS 55.3 % (40-80); RBC 3.99 10x6/uL (4.00-5.40); WBC 6.3 10x3/uL (4.8-10.8)
[2016-08-24 12:18] LABS: PLATELET COUNT 259 10x3/uL (130-400)
[2016-08-24 12:35] LABS: ALBUMIN 3.1 g/dL (3.4-5.0); ALKALINE PHOSPHATASE 80 U/L (46-116); ALT (SGPT) 15 U/L (10-68); BILIRUBIN - TOTAL 0.21 mg/dL (0.2-1.3); CALC OSMOLALITY 284 mosm/kg (275-300); CALCIUM 8.3 mg/dL (8.5-10.1); CARBON DIOXIDE 32.4 mmol/L (21.0-32.0); CHLORIDE - SERUM 104 mmol/L (98-107); CREATININE - SERUM 0.8 mg/dL (0.6-1.3); GLUCOSE 135 mg/dL (74-106); POTASSIUM - SERUM 3.1 mmol/L (3.5-5.1); PROTEIN - SERUM 7.4 g/dL (6.4-8.2); SODIUM 142 mmol/L (136-145); UREA NITROGEN 12 mg/dL (7-18); eGFR NON AFRICAN AMERICAN 76 mL/min (90-120)
[2016-08-24 12:47] LABS: CKMB 0.6 U/L (0.0-3.6); CREATINE KINASE 60 UL (21-215); TROPONIN-I 0.055 ng/mL (0.000-0.060)
== END 2016-08-24 16:15 | disposition home or self-care (01) ==
LOC: D.ER 11:17
PROVIDERS: Emergency Medicine
DX: R07.9 Chest pain, unspecified (principal); R00.1 Bradycardia, unspecified; I25.10 Atherosclerotic heart disease of native coronary artery without angina pectoris; J44.9 Chronic obstructive pulmonary disease, unspecified; I21.4 Non-ST elevation (NSTEMI) myocardial infarction; F17.200 Nicotine dependence, unspecified, uncomplicated

== ENCOUNTER 2016-08-30 17:42 | Emergency (ER) | payer MEDICARE, MEDICAID ==
[2016-08-13 13:00] VITALS: BMI 23.4
[2016-08-30 19:21] LABS: BASOPHILS 0.3 % (0.0-2.0); EOSINOPHILS 2.1 % (0-7); HEMOGLOBIN 11.6 g/dL (12-16); IMMATURE GRANULOCYTES 0.3 % (0-5); MCHC 32.2 g/dL (31.0-37.0); MEAN PLATELET VOLUME 11.8 fL (7.4-10.4); MONOCYTES 8.1 % (2-11); NEUTROPHILS 46.2 % (40-80); PLATELET COUNT 231 10x3/uL (130-400); RDW 13.3 % (11.5-14.5); WBC 6.7 10x3/uL (4.8-10.8)
[2016-08-30 20:10] LABS: ALBUMIN 3.3 g/dL (3.4-5.0); ALKALINE PHOSPHATASE 92 U/L (46-116); ALT (SGPT) 17 U/L (10-68); BILIRUBIN - TOTAL 0.19 mg/dL (0.2-1.3); CALC OSMOLALITY 280 mosm/kg (275-300); CALCIUM 8.3 mg/dL (8.5-10.1); CARBON DIOXIDE 32.6 mmol/L (21.0-32.0); CHLORIDE - SERUM 103 mmol/L (98-107); CREATININE - SERUM 0.7 mg/dL (0.6-1.3); GLUCOSE 99 mg/dL (74-106); POTASSIUM - SERUM 3.5 mmol/L (3.5-5.1); PROTEIN - SERUM 7.1 g/dL (6.4-8.2); SODIUM 142 mmol/L (136-145); UREA NITROGEN 7 mg/dL (7-18); eGFR NON AFRICAN AMERICAN 88 mL/min (90-120)
[2016-08-30 20:40] LABS: C-REACTIVE PROTEIN < 0.2 mg/dL (0.0-0.9)
[2016-08-30 20:42] LABS: TROPONIN-I 0.097 ng/mL (0.000-0.060)
== END 2016-08-30 23:25 | disposition home or self-care (01) ==
LOC: D.ER 17:42
PROVIDERS: Family Medicine
DX: R07.89 Other chest pain (principal); J44.9 Chronic obstructive pulmonary disease, unspecified; I25.810 Atherosclerosis of coronary artery bypass graft(s) without angina pectoris; I21.4 Non-ST elevation (NSTEMI) myocardial infarction; R00.1 Bradycardia, unspecified

== ENCOUNTER 2016-09-13 17:00 | Emergency (ER) | payer MEDICARE, MEDICAID ==
[2016-08-13 13:00] VITALS: BMI 23.4
[2016-09-13 18:39] LABS: BASOPHILS 0.2 % (0.0-2.0); EOSINOPHILS 1.6 % (0-7); HEMATOCRIT 41.1 % (36.0-48.0); HEMOGLOBIN 13.4 g/dL (12-16); IMMATURE GRANULOCYTES 0.1 % (0-5); MCH 29.5 pg (26.0-34.0); MCHC 32.6 g/dL (31.0-37.0); MCV 90.3 fL (80.0-100.0); MEAN PLATELET VOLUME 12.5 fL (7.4-10.4); NEUTROPHILS 56.1 % (40-80); PLATELET COUNT 187 10x3/uL (130-400); RBC 4.55 10x6/uL (4.00-5.40); RDW 13.7 % (11.5-14.5); WBC 8.3 10x3/uL (4.8-10.8)
[2016-09-13 18:50] LABS: ALBUMIN 3.6 g/dL (3.4-5.0); ALKALINE PHOSPHATASE 103 U/L (46-116); ALT (SGPT) 18 U/L (10-68); BILIRUBIN - TOTAL 0.23 mg/dL (0.2-1.3); CALC OSMOLALITY 275 mosm/kg (275-300); CALCIUM 8.5 mg/dL (8.5-10.1); CARBON DIOXIDE 29.3 mmol/L (21.0-32.0); CHLORIDE - SERUM 102 mmol/L (98-107); CREATININE - SERUM 0.7 mg/dL (0.6-1.3); GLUCOSE 88 mg/dL (74-106); POTASSIUM - SERUM 3.3 mmol/L (3.5-5.1); SODIUM 140 mmol/L (136-145); UREA NITROGEN 8 mg/dL (7-18); eGFR NON AFRICAN AMERICAN 88 mL/min (90-120)
[2016-09-13 19:17] LABS: CHOL - HDL RATIO 2.4 ratio (2.3-4.1); CHOLESTEROL, TOTAL 171 mg/dL (0-200); CKMB 0.6 U/L (0.0-3.6); CREATINE KINASE 61 UL (21-215); HDL CHOLESTEROL 71 mg/dL (32-96); LDL CHOLESTEROL 82 mg/dL (0-100); LDL-HDL RATIO 1.2 ratio (1.5-3.5); TRIGLYCERIDE 94 mg/dL (30-200)
[2016-09-13 19:20] LABS: TROPONIN-I 0.113 ng/mL (0.000-0.060)
== END 2016-09-13 21:16 | disposition home or self-care (01) ==
LOC: D.ER 17:00
PROVIDERS: Emergency Medicine
DX: I20.8 Other forms of angina pectoris (principal); T73.3XXA Exhaustion due to excessive exertion, initial encounter; X58.XXXA Exposure to other specified factors, initial encounter; R00.1 Bradycardia, unspecified; J44.9 Chronic obstructive pulmonary disease, unspecified; I25.10 Atherosclerotic heart disease of native coronary artery without angina pectoris; F12.90 Cannabis use, unspecified, uncomplicated

== ENCOUNTER 2016-10-13 12:05 | Observation (INO) | payer MEDICARE, MEDICAID ==
[~2016-10-13] VITALS: Ht 157.5 cm; Wt 55.5 kg
--- NOTE | ~2016-10-13 | HEMODYNAMI ---
PATIENT:WINNIE LEE MEDICAL RECORD: [id number] : 48 [id number] ADMISSION DATE: 10/13/16 Generatedon:10/14/201610:15 Patient name: WINNIE LEE Patient #: [id number] SSN: [id number] : 1950 Date of study: 10/14/2016 Page: Of Hemodynamic Procedure Report Patient Data Patient Demographics Procedure consent was obtained First Name: WINNIE Gender: Female Last Name: ROSA : 1950 [facility] Initial: STACIE Age: 66 year(s) Patient #: [id number] Race: Black SSN: [id number] Additional ID: [id number] Contact details Address: [address] [place] [address] State: [place] City: [facility] Zip code: [address] Past Medical History History of disease Date Diagnosis Comments CAD COPD Hypertension Allergies Allergen Reaction Date Comments Reported Other allergy 10/19/2015 Prednisone, Tomato Other allergy 05/25/2016 tomatos Other allergy 05/28/2016 prednisone, tomatoes Other allergy 08/13/2016 Prednisone,Tomatoes Admission Admission Data Admission Date: 10/13/2016 Admission Time: 13:50 Room #: 2117 Procedure Procedure Types Cath Procedure Diagnostic Procedure [facility] w/Coronaries Miscellaneous Procedures Moderate Sedation up to 15 minutes Procedure Description Procedure Date Procedure Date: 10/14/2016 Procedure Start Time: 9:57 Procedure End Time: 10:14 Procedure Staff Name Function Obed Mitchell MD Performing Physician Anila Winslow RN Nurse Jalen Patel RT Monitor Farhan Velásquez RT Scrub Procedure Data Cath Procedure Fluoroscopy Diagnostic fluoroscopy Total fluoroscopy Time: 1.2 time: 1.2 min min Diagnostic fluoroscopy Total fluoroscopy dose: 299 dose: 299 mGy mGy Contrast Material Contrast Material Type Amount (ml) Isovue 300 65 Entry Location Entry Primary Successful Side Size Upsize Upsize Entry Closure Succes sful Closure Location (Fr) 1 (Fr) 2 (Fr) Remarks Device Remarks Femoral Right 5 Fr Exoseal artery Estimated blood loss: 10 ml Diagnostic catheters Device Type Used For End Catheter Placement Cordis 5Fr JL 4.0 Procedure Catheter (MP) Cordis 5Fr 3DRC Catheter Procedure (MP) Cordis 5Fr Pigtail Procedure Catheter (MP) Procedure Complications No complications Procedure Medications Medication Administration Route Dosage Oxygen NC 2 l/min Heparin Flush Bag added to field 2 bags (1000units/500ml NS) Lidocaine 2% added to field 20 Fentanyl I.V. 50 mcg Versed I.V. 1 mg Fentanyl I.V. 50 mcg Versed I.V. 1 mg Hemodynamics Rest Heart Rate: 66 (bpm) Pressure Samples Time Site Value (mmHg) Purpose Heart Use Rate(bpm) 9:59 AO 117/61(79) Snapshot 52 10:04 LV 151/-4,16 Snapshot 58 Gradients Valve Time Site Site Mean SEP/DFP Peak To Heart Use 1 2 (mmHg) (sec/min) Peak Rate (mmHg) (bpm) Aortic 10:05 LV AO 58 Snapshots Pre Cath Intra NCS Post Cath Vital Signs Time Heart Resp SPO2 etCO2 XC1msts NIBP (mmHg) Rhythm Pain Status Se dation Rate (ipm) (%) (mmHg) (mmHg) Level (bpm) 9:43:52 62 24 97 0 0 Measuring NSR 9 (11) , 10 (A) Excruciating unbearable 9:44:14 63 25 97 0 0 202/102(169) NSR 9 (11) , 10 (A) Excruciating unbearable 9:48:45 60 21 99 0 0 175/86(126) NSR 9 (11) , 10 (A) Excruciating unbearable 9:53:44 54 17 100 0 0 Measuring NSR 4 (11) , 10 (A) Distressing 9:54:10 53 18 100 0 0 170/98(133) NSR 4 (11) , 10 (A) Distressing 9:58:26 54 16 99 0 0 122/75(105) NSR 0 (11) , No 9( A) pain 10:02:30 58 16 100 0 0 133/77(111) NSR 0 (11) , No 9( A) pain 10:06:38 60 16 100 0 0 139/76(109) NSR 0 (11) , No 9( A) pain 10:11:12 57 16 100 0 0 144/79(123) NSR 0 (11) , No 9( A) pain Medications Time Medication Route Dose Verified Delivered Reason Notes Effect iveness by by 9:44:43 Oxygen NC 2 Obed Anila Per l/min St. Abdulkadir Winslow RN physician 9:44:55 Heparin Flush added 2 Obed Obed [facility] (1000units/500ml field MD FERNÁNDEZ NS) 9:45:02 Lidocaine 2% added 20ml Obed Obed used for to vial Stephen Stephen procedure field MD FERNÁNDEZ 9:45:15 Fentanyl I.V. 50 Obed Anila for back mcg [facility] Abdulkadir Winslow RN pain 9:53:17 Versed I.V. 1 mg Obed Anila for [facility]. Abdulkadir Winslow RN sedation 9:53:22 Fentanyl I.V. 50 Obed Anila for mcg [facility] Abdulkadir Winslow RN sedation 9:56:34 Versed I.V. 1 mg Boed Anila for [facility]. Abdulkadir Winslow RN sedation Procedure Log Time Note 9:22:19 Jalen Patel RT(R) sent for patient. Start room use. 9:22:20 Time tracking: Regular hours 9:22:25 Plan of Care:Hemodynamics will remain stable., Cardiac rhythm will remain stable., Comfort level will be maintained., Respiratory function will remain adequate., Patient/ family verbilizes understanding of procedure., Procedure tolerated without complication., Recovers from procedure without complications.. 9:33:50 Patient received from PCU to CCL 1 Alert and oriented. Tansferred to table in Supine position. 9:33:52 Warm blankets applied, and stephanie hugger turned on for patient comfort. 9:33:52 Correct patient and procedure confirmed by team. 9:33:54 Signed procedure consent form obtained from patient. 9:33:56 ECG and BP/O2 sat monitors applied to patient. 9:42:02 Vital chart was started 9:42:03 Baseline sample Acquired. 9:42:08 Rhythm: sinus rhythm 9:42:11 Full Disclosure recording started 9:42:41 H&P Date Dictated: 10/13/2016 Within 30 days and on chart.. 9:42:42 Pre-op teaching completed and patient verbalized understanding. 9:42:42 Pre-procedure instructions explained to patient. 9:42:44 Family in waiting room. 9:42:45 Patient NPO since Midnight. 9:42:47 Is the patient allergic to Iodine/contrast media? No. 9:42:48 Is patient on blood thinner?Yes 9:42:51 ACC The patient was administered the following blood thiners within the last 24 hours: ACCPlavix 9:42:53 Patient diabetic? No. 9:42:56 Previous problem with sedation/anesthesia? No ? 9:42:58 Snore? Yes 9:42:59 Sleep apnea? No 9:43:00 Opens mouth fully? Yes 9:43:00 Deviated septum? No 9:43:01 Sticks out tongue? Yes 9:43:04 Airway obstruction? Yes COPD 9:43:10 Dentures? Yes IN 9:43:14 Pre procedure: right dorsailis pedis pulse 1+ Palpable, but thready & weak; easily obliterated 9:43:16 Patient pain scale 0/10 ?. 9:43:21 IV patent on arrival in right forearm with 0.9% NaCl at KVO. 9:43:23 Lab results completed and on chart. 9:43:26 Right groin area was prepped with chlora-prep and draped in sterile fashion 9:43:27 Alarms reviewed by R. N. 9:43:28 Sharps counted by scrub and verified by R.N. 9:43:31 Use device set Femoral Dx 9:43:35 Tegaderm 4 x 4 opened to sterile field. 9:43:42 Acist Manifold opened to sterile field. 9:43:42 Acist Hand Control opened to sterile field. 9:43:44 Acist Syringe opened to sterile field. 9:43:45 Bag Decanter opened to sterile field. 9:43:46 Medline Cath Pack opened to sterile field. 9:43:47 Terumo 5Fr Elgin Sheath opened to sterile field. 9:43:48 St Isai 260cm J .035 wire opened to sterile field. 9:43:50 Diagnostic Infinity 5Fr Multipack catheter opened to sterile field. 9:44:43 Oxygen 2 l/min NC was administered by Anila [place] RN; Per physician; 9:44:55 Heparin Flush Bag (1000units/500ml NS) 2 bags added to field was administered by Obed Mitchell MD; used for procedure; 9:45:02 Lidocaine 2% 20ml vial added to field was administered by Obed Mitchell MD; used for procedure; :45:15 Fentanyl 50 mcg I.V. was administered by Anila Winslow RN; for back pain; ::07 --------ALL STOP TIME OUT------ ::08 Final Timeout: patient, procedure, and site verified with staff and physician. All members of the team are in agreement. 9:52:14 Right groin site verified by team. 9:52:18 Physical assessment completed. ASA score P 2 - A patient with mild systemic disease as per Obed Mitchell MD. 9:52:21 Sedation plan: IV Moderate Sedation Versed, Fentanyl 9:52:59 Zero performed for pressure channel P1 9:53:17 Versed 1 mg I.V. was administered by Anila Winslow RN; for sedation; 9:53:22 Fentanyl 50 mcg I.V. was administered by Anila Winslow RN; for sedation; 9:56:34 Versed 1 mg I.V. was administered by Anila Winslow RN; for sedation; 9:57:29 Procedure started. 9:57:34 Local anesthetic to right femoral artery with Lidocaine 2% by Obed Mitchell MD.INITIAL ACCESS ONLY 9:58:01 A 5 Fr sheath was inserted into the Right Femoral artery 9:59:42 A Cordis 5Fr JL 4.0 Catheter (MP) was advanced over the wire and used for Procedure. 10:00:07 LCA angiography performed. 10:00:33 Catheter removed. 10:01:53 A Cordis 5Fr 3DRC Catheter (MP) was advanced over the wire and used for Procedure. 10:03:11 RCA angiography performed. 10:03:15 Catheter removed. 10:03:22 A Cordis 5Fr Pigtail Catheter (MP) was advanced over the wire and used for Procedure. 10:05:40 LV angiography performed. 10:05:47 EF : 45 % 10:05:48 LV hemodynamics recorded. 10:05:51 Injector settings: Ml/sec: 10, Volume: 20, 10:06:16 Catheter removed. 10:07:13 Sheath removed intact; hemostasis achieved with Exoseal to the Right Femoral artery. 10:07:21 Cordis 5Fr Exoseal opened to sterile field. 10:07:25 Procedure ended.(Physican Out) 10:07:47 Fluoroscopy time 01.20 minutes. 10:07:56 Fluoroscopy dose: 299 mGy 10:07:56 Flurop Dose total: 299 10:08:00 Contrast amount:Isovue 300 65ml. 10:08:02 Sharps counted by scrub and verified by R.N. 10:08:04 Insertion/operative site no bleeding no hematoma. 10:08:08 Post-op/insertion site Right Femoral artery dressed using a 4 x 4 and Tegaderm. 10:08:09 Post Procedure Pulses reassessed and unchanged 10:08:12 Post-procedure physical assessment completed. ASA score P 2 - A patient with mild systemic disease as per Obed Mitchell MD. 10:08:15 Post procedure rhythm: unchanged. 10:08:18 Estimated blood loss: 10 ml 10:08:21 Post procedure instruction explained to patient.Patient verbalizes understanding. 10:08:22 Patient needs reinforcement of post procedure teaching. 10:10:48 Procedure and supply charges have been captured, reviewed, submitted and are correct. 10:10:58 Procedure Complication : No complications 10:14:29 Vital chart was stopped 10:14:30 See physician's report for complete and final results. 10:14:34 Report given to PCU. 10:14:38 Patient transfered to PCU with Bed. 10:14:41 Procedure ended. 10:14:41 Full Disclosure recording stopped 10:14:48 End room use (Document Last) Device Usage Item Name Manufacture Quantity Catalog Hospital Part Current Minimal Lo t# / Number Charge Number Stock Stock Serial# Code Tegaderm 4 3M 1 [id number] [id number] [id number] 5 x 4 Acist Hand Acist 1 40415 [id number] 160206 124633 5 Control [employer] Inc Acist Acist 1 97069 582158 876356 563636 5 Manifold Medical [employer] Inc Acist Acist 1 20666 868852 463940 366685 20 Syringe Medical Systems Inc Bag Microtek 1 2002S 331732 67363 134626 5 Decanter Medical Inc. Medline Cardinal 1 [id number] 860050 77953 516633 5 Cath Pack Health Terumo 5Fr Terumo 1 [id number] 464796 306142 906492 [address] St Isai 1 019052 553851 983020 674481 30 260cm J .035 wire Diagnostic Cardinal 1 [id number] 678621 21853 309965 30 Infinity Health 5Fr Multipack catheter Cordis 5Fr Cardinal 1 178768 5 JL 4.0 Health Catheter (MP) Cordis 5Fr Cardinal 1 431920 5 3DRC Health Catheter (MP) Cordis 5Fr Cardinal 1 635347 5 Pigtail Health Catheter (MP) Cordis 5Fr Cardinal 1 EX500 943871 617646 464519 10 OrderUp Signature Audit Rudyard Stage Time Signature Unsigned Intra-Procedure 10/14/2016 Jalen Patel 10:15:31 AM RT(R) Signatures Monitor : Jalen Patel RT Signature : Date : Time : [place] [id number] [facility] [place] [address]
[2016-10-13 12:30] LABS: BASOPHILS 0.3 % (0-2); EOSINOPHILS 0.9 % (0-7); HEMOGLOBIN 13.9 g/dL (12-16); IMMATURE GRANULOCYTES 0.5 % (0-5); MCHC 32.3 g/dL (31.0-37.0); MCV 89.6 fL (80.0-100.0); MEAN PLATELET VOLUME 11.7 fL (7.4-10.4); MONOCYTES 6.8 % (2-11); NEUTROPHILS 60.5 % (40-80); PLATELET COUNT 197 10x3/uL (130-400); RDW 13.6 % (11.5-14.5); WBC 6.5 10x3/uL (4.8-10.8)
[2016-10-13 12:42] LABS: ALBUMIN 3.4 g/dL (3.4-5.0); ALKALINE PHOSPHATASE 112 U/L (46-116); ALT (SGPT) 19 U/L (10-68); BILIRUBIN - TOTAL 0.19 mg/dL (0.2-1.3); CALC OSMOLALITY 278 mosm/kg (275-300); CHLORIDE - SERUM 102 mmol/L (98-107); CREATININE - SERUM 0.8 mg/dL (0.6-1.3); GLUCOSE 106 mg/dL (74-106); POTASSIUM - SERUM 3.1 mmol/L (3.5-5.1); PROTEIN - SERUM 8.6 g/dL (6.4-8.2); SODIUM 141 mmol/L (136-145); UREA NITROGEN 7 mg/dL (7-18); eGFR NON AFRICAN AMERICAN 76 mL/min (90-120)
[2016-10-13 12:58] LABS: CHOL - HDL RATIO 2.1 ratio (2.3-4.1); CHOLESTEROL, TOTAL 158 mg/dL (0-200); CKMB 1.6 U/L (0.0-3.6); CREATINE KINASE 104 UL (21-215); HDL CHOLESTEROL 76 mg/dL (32-96); LDL CHOLESTEROL 73 mg/dL (0-100); TRIGLYCERIDE 49 mg/dL (30-200)
[2016-10-13 12:59] LABS: TROPONIN-I 3.762 ng/mL (0.000-0.060)
[2016-10-13 14:06] LABS: APPEARANCE CLEAR (CLEAR); BILIRUBIN NEGATIVE (NEGATIVE); COLOR YELLOW (YELLOW); GLUCOSE NEGATIVE (NEGATIVE); KETONE NEGATIVE (NEGATIVE); LEUKOCYTE ESTERASE NEGATIVE (NEGATIVE); NITRITE NEGATIVE (NEGATIVE); PROTEIN NEGATIVE (NEGATIVE); SPECIFIC GRAVITY 1.015 (1.005-1.020); UROBILINOGEN NORMAL (NORMAL)
[2016-10-13 15:00] VITALS: BP 193/65; Ht 157.5 cm; Wt 55.5 kg
--- NOTE | 2016-10-13 15:00 | NUR ---
RECEIVED PT FROM ER VIA W/C C/O PAIN TO CHEST 10/17 RESP UNLABORED SKIN W/D COLOR WNL TELEMETRY APPLIED SINUS BRI RATE 58 SALINE LOCK TO RFA INTACT SITE FREE OF REDNESS OR EDEMA WILL CONTINUE TO MONITOR
[2016-10-13] MEDS ORDERED: BENICAR20 MG PO (15:25)
[2016-10-13 16:55] LABS: CKMB 1.3 U/L (0.0-3.6); CREATINE KINASE 97 UL (21-215)
[2016-10-13 16:58] LABS: TROPONIN-I 3.623 ng/mL (0.000-0.060)
[2016-10-13 20:00] VITALS: BP 140/59
[2016-10-13 23:10] LABS: CKMB 1.1 U/L (0.0-3.6); CREATINE KINASE 78 UL (21-215)
[2016-10-13 23:12] LABS: TROPONIN-I 3.079 ng/mL (0.000-0.060)
[2016-10-14] VITALS: BP 142/68
[2016-10-14 04:00] VITALS: BP 180/65
--- NOTE | 2016-10-14 04:55 | NUR ---
PT WITH BP 180/65. ADMITS THAT SHE HAS SPENT THE NIGHT DWELLING ON A PHONE CALL SAYING SHE HAD LOST HER SON IN LAW AND ALSO JUST RECENTLY LOST HER SISTER IN LAW. MEDICATED WITH MORPHINE 4MG SIVP TO PROMOTE OPTIMAL COMFORT. WILL MONITOR. CPOC.
[2016-10-14 05:14] LABS: CKMB 0.7 U/L (0.0-3.6); CREATINE KINASE 67 UL (21-215)
[2016-10-14 05:15] LABS: TROPONIN-I 3.354 ng/mL (0.000-0.060)
--- NOTE | 2016-10-14 07:10 | NUR ---
RECEIVED PT IN BED AAOX4 RESP UNLABORED DENIES ANY NEEDS OR DISCOMFOR AT THIS TIME NAD NOTED
[2016-10-14 08:15] VITALS: BP 156/68
[2016-10-14 09:12] LABS: BASOPHILS 0.4 % (0-2); EOSINOPHILS 1.9 % (0-7); HEMATOCRIT 37.1 % (36.0-48.0); HEMOGLOBIN 11.9 g/dL (12-16); LYMPHOCYTES 45.9 % (15-50); MCH 28.7 pg (26.0-34.0); MCHC 32.1 g/dL (31.0-37.0); MCV 89.6 fL (80.0-100.0); MEAN PLATELET VOLUME 12.4 fL (7.4-10.4); MONOCYTES 12.1 % (2-11); NEUTROPHILS 39.7 % (40-80); PLATELET COUNT 214 10x3/uL (130-400); RBC 4.14 10x6/uL (4.00-5.40); RDW 13.7 % (11.5-14.5)
[2016-10-14 09:25] LABS: CALC OSMOLALITY 279 mosm/kg (275-300); CALCIUM 8.3 mg/dL (8.5-10.1); CARBON DIOXIDE 30.4 mmol/L (21.0-32.0); CHLORIDE - SERUM 104 mmol/L (98-107); CREATININE - SERUM 0.8 mg/dL (0.6-1.3); GLUCOSE 94 mg/dL (74-106); POTASSIUM - SERUM 3.4 mmol/L (3.5-5.1); SODIUM 141 mmol/L (136-145); eGFR NON AFRICAN AMERICAN 76 mL/min (90-120)
[2016-10-14 09:27] LABS: UREA NITROGEN 9 mg/dL (7-18)
[2016-10-14 09:40] LABS: WBC 4.8 10x3/uL (4.8-10.8)
--- NOTE | 2016-10-14 12:54 | NUR ---
SPOKE WITH DR REYNOLDS ABOUT REFERRAL TO DR HERNANDEZ STATED HE WOULD TAKE CARE OF IT NOTHING TO BE DONE BEFORE DISCHARGE
--- NOTE | 2016-10-14 13:55 | NUR ---
PT STILL LETHARGIC STATES IS NOT READY FOR DISCHARGE AT THIS TIME
[2016-10-14 15:49] VITALS: BP 197/102
--- NOTE | 2016-10-14 19:00 | NUR ---
INITIAL ROUNDS MADE.PT SITTING UP IN BED WATCHING TV. DENIES NEEDS OR C/O AT THIS TIME. CALL LIGHT IN REACH. WILL CONT TO MONITOR. WAITING ON SON FOR DC TRANSPORTATION.
--- NOTE | 2016-10-14 21:07 | NUR ---
TAKEN DOWNSTAIRS VIA WC.
--- NOTE | 2016-10-15 10:09 | OP ---
PATIENT NAME: WINNIE LEE MEDICAL RECORD: [id number] :48 LOCATION:D.M2 D.2117 ADMISSION DATE:10/13/16 SURGEON: TAMMI REYNOLDS MD DATE OF OPERATION: 10/14/2016 PROCEDURES: Left heart catheterization, selective coronary angiography, right femoral artery approach. CATHETERS: A 5-Nepali sheath, 5-4 Rell, 5/4 pig. The procedure was well tolerated. The patient returned to the granado, sheath removed. ExoSeal device placed. FINDINGS: Left ventriculography in 30-degree PETE view: Mild global hypokinesis. Overall, LV function only minimally reduced at 40%-45%. CORONARY ANATOMY: LEFT MAIN: Left main has about a 70% restenosis giving way to the LAD proper, which shows a 70% proximal stenosis and distally, an 80% stenosis to the LAD. There is a large diagonal branch that has about 80% ostial stenosis. CIRCUMFLEX: Has one OM that appears to be a reasonable target. RIGHT CORONARY ARTERY: Somewhat codominant system and this shows a restenosis of 70%-80%. IMPRESSION: Multiple areas of restenosis including left main, suspect long-term, would do best with coronary artery bypass grafting. We will set for a consultation with Dr. Omer for possible coronary bypass grafting. TRANSINT:[id number] Voice Confirmation ID: [id number] DOCUMENT ID: [id number] TAMMI REYNOLDS MD at 1009 CC: [id number] DICTATION DATE: 10/14/16 1017 PLASTICS SCIENTIST: 10/14/16 1701 DIS IN 10/14/16 [place] [id number] [place] [id number]
--- NOTE | 2016-10-15 10:09 | HP ---
PATIENT: WINNIE LEE MEDICAL RECORD: [id number] ACCOUNT: [id number] LOCATION:[address] : [birth year] ADMISSION DATE: 10/13/16 HISTORY AND PHYSICAL EXAMINATION HISTORY OF PRESENT ILLNESS: A 66-year-old lady ____ with history of hypertension, coronary artery disease, last intervention back in August, has been doing extremely well; however, had 2 deaths in the family the last 2 days at onset of her classic angina since yesterday, chest tightness and pressure. She presented to the ER, found to have elevated troponin as well as anterior T-wave changes on the 12 lead. She has baseline LVH ____ stated that she has been doing quite well and she is noncompliance with the medications. We are asked to see her concerning her cardiovascular status. PAST MEDICAL HISTORY: Includes 1. History of coronary artery disease as described above. 2. Obstructive pulmonary disease. 3. Coronary artery disease. 4. Hypertension. 5. Hyperlipidemia. SOCIAL HISTORY: Locally lives here in [place]. Easily takes care of all her ADLs. She is a social drinker, does walk, but no set of exercise program. MEDICATIONS: Typically include Singulair 10 q.h.s., Protonix 40 q. day, Lasix 20 q. day, Namenda 10 q. day, aspirin 81 q. day, Crestor 40 q. day, Benicar 20 q. day, metoprolol 50 b.i.d., Imdur 30 q. day, Plavix 75 q. day, and Flexeril 10 p.r.n. REVIEW OF SYSTEMS: The patient reports easy bruising but reports no swollen glands. The patient reports no fever, no night sweats, no significant weight gain, no significant weight loss. No significant exercise tolerance. The patient reports no dry eyes, no irritation, no vision change. Patient reports no difficulty hearing and no ear pain. Patient reports no frequent nose bleeds or nose and sinus problems. Patient reports on arm pain on exertion. No shortness of breath while lying down. No history of heart murmur. Patient reports no cough, no wheezing or coughing up blood. Patient reports no abdominal pain, no vomiting. Normal appetite. No diarrhea and not vomiting blood. No nausea and no constipation. Patient reports no incontinence. No difficulty urinating. No hematuria. No increased frequency. Patient reports no muscle aches. No weakness, no arthralgias, no back pain. No swelling of the extremities. Patient reports no abnormal mole, no jaundice, no rashes. Reports no loss of consciousness. No weakness and no numbness. No seizures, dizziness, or headaches. The patient reports no depression, no sleep disturbance, feeling safe in a relationship and no alcohol abuse. Patient reports on fatigue. Reports no runny nose or sinus pressure. No itching, no hives, and no frequent sneezing. PHYSICAL EXAMINATION: GENERAL: Pleasant female, in no acute distress, appears stated age. VITAL SIGNS: Blood pressure of 156/68, pulse 56 and regular. HEENT: Normocephalic, atraumatic. NECK: No bruises are noted. HEART: Regular, II/ systolic ejection murmur. LUNGS: Fair air excursion, no active wheezing. HISTORY AND PHYSICAL [id number] WINNIE LEE ABDOMEN: Soft, nontender. EXTREMITIES: Pulses 2+ with no edema. DIAGNOSTIC DATA: ECG shows anterior T-wave changes, LVH, otherwise. IMPRESSION: Acute coronary syndrome, questionable stress related versus fixed obstructive disease versus a combination of the two. PLAN: Angiography intervention based on above. TRANSINT:[id number] Voice Confirmation ID: [id number] DOCUMENT ID: [id number] TAMMI REYNOLDS MD at 1009 CC: [id number] DICTATION DATE: 10/14/16 0856 GARDENER FLORIST: 10/14/16 1152 DIS IN 10/14/16 [facility] [address] [id number]
== END 2016-10-14 21:05 | disposition home or self-care (01) ==
LOC: D.ER 12:05 → D.M2 13:50 → OBSVTIME 14:01 → D.M2 10-14 21:05
PROVIDERS: Emergency Medicine; ADMIT Internal Medicine Interventional Cardiology
DX: T82.855A Stenosis of coronary artery stent, initial encounter (principal); Y83.8 Other surgical procedures as the cause of abnormal reaction of the patient, or of later complication, without mention of misadventure at the time of the procedure; I25.10 Atherosclerotic heart disease of native coronary artery without angina pectoris; J44.9 Chronic obstructive pulmonary disease, unspecified; I10 Essential (primary) hypertension; E78.5 Hyperlipidemia, unspecified; Z91.19 Patient's noncompliance with other medical treatment and regimen

== ENCOUNTER 2016-10-27 00:07 | Emergency (ER) | payer MEDICARE, MEDICAID ==
[2016-10-13 15:00] VITALS: BMI 22.3
[~2016-10-27 00:07] MED LIST changes: +BENICAR20 MG PO
[2016-10-27 00:55] LABS: BASOPHILS 0.3 % (0-2); EOSINOPHILS 1.7 % (0-7); HEMATOCRIT 38.3 % (36.0-48.0); HEMOGLOBIN 12.7 g/dL (12-16); IMMATURE GRANULOCYTES 0.2 % (0-5); LYMPHOCYTES 33.5 % (15-50); MCH 28.9 pg (26.0-34.0); MCHC 33.2 g/dL (31.0-37.0); MCV 87.2 fL (80.0-100.0); MEAN PLATELET VOLUME 11.8 fL (7.4-10.4); MONOCYTES 11.2 % (2-11); NEUTROPHILS 53.1 % (40-80); PLATELET COUNT 224 10x3/uL (130-400); RBC 4.39 10x6/uL (4.00-5.40); RDW 13.3 % (11.5-14.5)
[2016-10-27 01:42] LABS: ALBUMIN 3.3 g/dL (3.4-5.0); ALKALINE PHOSPHATASE 93 U/L (46-116); ALT (SGPT) 17 U/L (10-68); CALC OSMOLALITY 274 mosm/kg (275-300); CALCIUM 8.7 mg/dL (8.5-10.1); CARBON DIOXIDE 32.3 mmol/L (21.0-32.0); CHLORIDE - SERUM 98 mmol/L (98-107); CKMB 0.6 U/L (0.0-3.6); CREATINE KINASE 81 UL (21-215); CREATININE - SERUM 0.8 mg/dL (0.6-1.3); GLUCOSE 109 mg/dL (74-106); PROTEIN - SERUM 7.6 g/dL (6.4-8.2); SODIUM 138 mmol/L (136-145); UREA NITROGEN 6 mg/dL (7-18); eGFR NON AFRICAN AMERICAN 76 mL/min (90-120)
[2016-10-27 01:52] LABS: POTASSIUM - SERUM 2.6 mmol/L (3.5-5.1); TROPONIN-I 0.064 ng/mL (0.000-0.060)
== END 2016-10-27 05:15 | disposition home or self-care (01) ==
LOC: D.ER 00:07
PROVIDERS: Emergency Medicine
DX: R07.9 Chest pain, unspecified (principal); E87.6 Hypokalemia; I25.10 Atherosclerotic heart disease of native coronary artery without angina pectoris; J44.9 Chronic obstructive pulmonary disease, unspecified; I21.4 Non-ST elevation (NSTEMI) myocardial infarction

== ENCOUNTER → 2016-11-01 13:20 | Outpatient (CLI) | payer MEDICARE, MEDICAID ==
[2016-10-13 15:00] VITALS: BMI 22.3
--- NOTE | ~2016-11-01 | DS ---
PATIENT:WINNIE LEE :48 MEDICAL RECORD: [id number] DISCHARGE SUMMARY ADMISSION DATE: 11/01/16 DISCHARGE DATE: 11/01/16 DISCHARGE DIAGNOSES: 1. Acute coronary syndrome. 2. Hypertension. 3. Hyperlipidemia. PROCEDURES PERFORMED: Left heart catheterization. BRIEF HISTORY AND HOSPITAL COURSE: A 66-year-old female with a long history of coronary artery disease, status post multiple interventions, admitted with acute coronary syndrome, found to have multivessel disease and multiple areas restenosis. It was felt that she could be a candidate for coronary bypass grafting referred as an outpatient by Dr. Omer for that purpose. She will need to be off Plavix ____ for 7 days before any grafting. Follow up will be as described. ACTIVITY: As tolerated. DIET: AHA diet. TRANSINT:[id number] Voice Confirmation ID: [id number] DOCUMENT ID: [id number] TAMMI REYNOLDS MD CC: [id number] DICTATION DATE: 11/01/16 1544 HANGERSMITH: 11/02/16 1424 DEP CLI 11/01/16 [id number] [place] [address]
[2016-11-02 10:22] LABS: HEPATITIS C ANTIBODY <0.1 (0.0-0.9)
== END | disposition home or self-care (01) ==
LOC: D.LAB 13:20 → D.US 14:30
PROVIDERS: Internal Medicine Cardiovascular Disease
DX: Z01.812 Encounter for preprocedural laboratory examination (principal); I65.23 Occlusion and stenosis of bilateral carotid arteries

== ENCOUNTER 2016-11-08 13:02 | Observation (INO) | payer MEDICARE, MEDICAID ==
[~2016-11-08] VITALS: Ht 157.5 cm; Wt 56.4 kg
[2016-11-08 13:49] LABS: BASOPHILS 0.5 % (0-2); EOSINOPHILS 1.9 % (0-7); HEMATOCRIT 40.7 % (36.0-48.0); HEMOGLOBIN 13.7 g/dL (12-16); MCH 29.3 pg (26.0-34.0); MCHC 33.7 g/dL (31.0-37.0); MCV 87.2 fL (80.0-100.0); MEAN PLATELET VOLUME 11.4 fL (7.4-10.4); MONOCYTES 6.5 % (2-11); NEUTROPHILS 53.1 % (40-80); PLATELET COUNT 207 10x3/uL (130-400); RBC 4.67 10x6/uL (4.00-5.40); RDW 13.7 % (11.5-14.5); WBC 4.3 10x3/uL (4.8-10.8)
[2016-11-08 14:45] LABS: ALBUMIN 3.3 g/dL (3.4-5.0); ALKALINE PHOSPHATASE 97 U/L (46-116); ALT (SGPT) 21 U/L (10-68); BILIRUBIN - TOTAL 0.26 mg/dL (0.2-1.3); CALCIUM 8.8 mg/dL (8.5-10.1); CARBON DIOXIDE 27.2 mmol/L (21.0-32.0); CHLORIDE - SERUM 102 mmol/L (98-107); CHOL - HDL RATIO 2.3 ratio (2.3-4.1); CHOLESTEROL, TOTAL 147 mg/dL (0-200); CREATINE KINASE 101 UL (21-215); CREATININE - SERUM 0.9 mg/dL (0.6-1.3); HDL CHOLESTEROL 64 mg/dL (32-96); LDL CHOLESTEROL 75 mg/dL (0-100); LDL-HDL RATIO 1.2 ratio (1.5-3.5); PRO BNP 565 pg/mL (0-125); PROTEIN - SERUM 8.2 g/dL (6.4-8.2); SODIUM 139 mmol/L (136-145); TRIGLYCERIDE 40 mg/dL (30-200); UREA NITROGEN 8 mg/dL (7-18); eGFR NON AFRICAN AMERICAN 66 mL/min (90-120)
[2016-11-08 14:47] LABS: CALC OSMOLALITY 280 mosm/kg (275-300); GLUCOSE 186 mg/dL (74-106)
[2016-11-08 14:49] LABS: POTASSIUM - SERUM 2.8 mmol/L (3.5-5.1); TROPONIN-I 0.418 ng/mL (0.000-0.060)
--- NOTE | 2016-11-08 17:30 | NUR ---
PT RECEIVED TO ROOM 2118, VIA WHEELCHAIR, PT ORIENTED TO ROOM AND CALL LIGHT, PUBLICITY EXPERT AT BEDSIDE TO GET VITALS. HEART MONITOR PLACED ON PT BY PUBLICITY EXPERT. IVFS HUNG AT THIS TIME, RATE SET TO 50CC/H. PT DENIES ANY NEEDS AT THIS TIME. CALL LIGHT IN REACH, NAD NOTED, WILL START PLAN OF CARE.
[2016-11-08 18:03] VITALS: BP 115/48; Ht 157.5 cm; Wt 56.4 kg
[2016-11-08] MEDS ORDERED: PROZAC20 MG PO (18:39)
[2016-11-08] MEDS ORDERED: PERCOCET 7.5/321 TAB PO (18:45)
[2016-11-08] MEDS ORDERED: FIORINAL/CODEIN1 CAP PO (18:46)
[2016-11-08] MEDS ORDERED: HYDROXYZINE HCL10 MG PO (18:47)
--- NOTE | 2016-11-08 18:55 | NUR ---
22 GAUGE IV PLACED IN LFA PER GISSELLE HARMON. NS RECONNECTED TO INFUSE PER ORDERS. PT TOLERATED WELL.
--- NOTE | 2016-11-08 19:50 | NUR ---
RESTING IN BED AND WATCHING TV. ALERT/ORIENTED. IVF NS @ 50ML/HR INFUSING TO LFA. SEE SHIFT ASSESSMENT. NO NEEDS AT THIS TIME, CPOC.
[2016-11-08 20:00] VITALS: BP 107/44
--- NOTE | 2016-11-08 21:13 | NUR ---
PT ALERT/ORIENTED AND RESTING IN BED. NS @ 50ML/HR TO LFA. SCDS IN PLACE. C/O BACK PAIN, MEDICATED WITH MORPHINE 3MG SIVP. PT DAUGHTER UP TO VISIT. SEE SHIFT ASSESSMENT. CPOC.
[2016-11-09] VITALS: BP 109/49
--- NOTE | 2016-11-09 02:20 | NUR ---
PT RESTING IN BED WITH EYES CLOSED. IVF INFUSING. NO DISTRESS. CPOC.
[2016-11-09 04:00] VITALS: BP 138/57
--- NOTE | 2016-11-09 07:24 | NUR ---
PT SITTING UP IN BED SLEEPING, RR EVEN AND NON LABORED. NO S/S DISTRESS NOTED WILL CONT TO MONITOR
--- NOTE | 2016-11-09 07:36 | HP ---
PATIENT: WINNIE AZUL MEDICAL RECORD: [id number] ACCOUNT: [id number] LOCATION:D. D.2119 : 48 ADMISSION DATE: 11/08/16 HISTORY AND PHYSICAL EXAMINATION DIAGNOSES: 1. Angina. 2. Coronary artery disease. 3. Hypertension. 4. Hyperlipidemia. HISTORY OF PRESENT ILLNESS: Mrs. Azul presents with increased chest pain. She has a history of coronary artery disease, status post multivessel percutaneous transluminal coronary angioplasty stent. Most recently, she has had a repeat cardiac catheterization revealing severe 3-vessel coronary artery disease. She was suggested to have bypass surgery. She initially declined that; however, on second thought she does want to proceed with bypass surgery. She has seen Dr. Omer. She has had her blood work done as well as carotid ultrasound, but she is not scheduled for surgery as of yet. PHYSICAL EXAMINATION: GENERAL APPEARANCE: Well-nourished, well-developed, appears stated age. Level of distress, comfortable. PSYCHIATRIC: Mental status, alert, normal affect. Orientation, oriented to time, place and person. EYES: Lids and conjunctiva, noninjected. No discharge, no pallor. ENT: Lips, teeth, gums, normal dentition. Oropharynx, no cyanosis, no pallor. NECK: Carotid arteries, bilateral normal upstroke, no bruits, no thrills. JUGULAR VEINS: No jugular venous pressure or distention. CERVICAL LYMPH NODES: Nontender, nonenlarged. THYROID: Not enlarged. Nontender. No nodules. LUNGS: Respiratory effort, unlabored. CHEST: Normal curvature. No thoracic deformity. No chest wall tenderness. Percussion, resonant. Auscultation, clear. No wheezes, no rales, no rhonchi. CARDIOVASCULAR: Precordial exam, nondisplaced. No heaves or pericardial thrills. Rate and rhythm, regular. Heart sounds, normal S1, normal S2. No S3, no gallop, no rub. Systolic murmur, not heard. Diastolic murmur, not heard. EXTREMITIES: No cyanosis, no edema. Peripheral pulses, full and equal in all extremities, except as noted. No bruits appreciated. ABDOMEN: Soft, nondistended. Normal aorta. No bruit. Nontender. No masses. Liver, nontender, no hepatomegaly. Spleen, nontender, no splenomegaly. MUSCULOSKELETAL: No joint tenderness. No joint swelling. No erythema. NEUROLOGICAL: Normal gait, normal strength, normal tone. SKIN: Warm and dry. REVIEW OF SYSTEMS: The patient reports easy bruising but reports no swollen glands. The patient reports no fever, no night sweats, no significant weight gain, no significant weight loss. No significant exercise tolerance. The patient reports no dry eyes, no irritation, no vision change. Patient reports no difficulty hearing and no ear pain. Patient reports no frequent nose bleeds or nose and sinus problems. Patient reports on arm pain on exertion. No shortness of breath while lying down. No history of heart murmur. Patient reports no cough, no wheezing or coughing up blood. Patient reports no abdominal pain, no vomiting. Normal appetite. No diarrhea and not vomiting blood. No nausea and no constipation. Patient reports no incontinence. No HISTORY AND PHYSICAL [id number] WINNIE AZUL difficulty urinating. No hematuria. No increased frequency. Patient reports no muscle aches. No weakness, no arthralgias, no back pain. No swelling of the extremities. Patient reports no abnormal mole, no jaundice, no rashes. Reports no loss of consciousness. No weakness and no numbness. No seizures, dizziness, or headaches. The patient reports no depression, no sleep disturbance, feeling safe in a relationship and no alcohol abuse. Patient reports on fatigue. Reports no runny nose or sinus pressure. No itching, no hives, and no frequent sneezing. OVERALL IMPRESSION: Continued angina with severe 3-vessel coronary artery disease. We will discuss with Dr. Omer and his team the timing of bypass surgery. TRANSINT:[id number] Voice Confirmation ID: [id number] DOCUMENT ID: [id number] JESIKA ARVIZU MD at 0736 CC: [id number] DICTATION DATE: 11/08/16 1546 STEEP TENDER: 11/08/16 1723 ADM IN [place] [id number] [place] [address]
[2016-11-09 08:04] VITALS: BP 124/45
[2016-11-09] MEDS ORDERED: ISOSORBIDE MONO30 M1 PO (12:19)
[2016-11-09] MEDS ORDERED: [UNRECOGNIZED DRUG - CODE] PO (12:56)
--- NOTE | 2016-11-09 13:10 | NUR ---
WENT OVER DC INSTRUCTIONS WITH PT PT VERBALIZES UNDERSTANDING. DC PIV WITH CATH TIP INTACT. DC TELE AND RETURNED TO DIRECTOR OF NURSES REGISTRY. CALLED INTO [facility] PER PT REQUEST JAGJIT AND AVNI WONG. SPOKE WITH ROBERT. PT IS CALLING HER RIDE AND WILL LET US KNOW WHEN SHE IS READY TO BE WHEELED OUT TO FRONT
--- NOTE | 2016-11-09 13:29 | NUR ---
PT WHEELED OUT IN WHEELCHAIR BY VOLUNTEER
== END 2016-11-09 13:30 | disposition home or self-care (01) ==
LOC: D.ER 13:02 → D.M2 16:12 → OBSVTIME 16:12 → D.M2 11-09 13:30
PROVIDERS: Emergency Medicine; ADMIT Internal Medicine Interventional Cardiology
DX: I25.119 Atherosclerotic heart disease of native coronary artery with unspecified angina pectoris (principal); I10 Essential (primary) hypertension; Z95.5 Presence of coronary angioplasty implant and graft; E78.5 Hyperlipidemia, unspecified

== ENCOUNTER 2016-11-09 22:35 | Emergency (ER) | payer MEDICARE, MEDICAID ==
[2016-11-08 18:03] VITALS: BMI 22.7
--- NOTE | ~2016-11-09 | DS ---
PATIENT:WINNIE AZUL :48 MEDICAL RECORD: [id number] DISCHARGE SUMMARY ADMISSION DATE: 11/09/16 DISCHARGE DATE: 11/10/16 DISCHARGE DIAGNOSES: 1. Angina. 2. Coronary artery disease. 3. Hypertension. 4. Hyperlipidemia. HOSPITAL COURSE: Ms. Azul presents with angina. She presented a number of weeks ago with anginal symptomatology, found to have significant disease of the LAD and the left main. She was evaluated with 2-vessel bypass, bypass have not been scheduled as of yet. She is known to cardiac surgery; however, she was seen by cardiac surgery in here. We will discontinue the Plavix, place her on Imdur 30 mg b.i.d. She will follow up next week with cardiovascular surgery. TRANSINT:[id number] Voice Confirmation ID: [id number] DOCUMENT ID: [id number] JESIKA ARVIZU MD CC: [id number] DICTATION DATE: 11/09/16 1152 STENOGRAPHER SECRETARY: 11/10/16 0128 DEP ER 11/10/16 [id number] [place] [address]
[~2016-11-09 22:35] MED LIST changes: +FIORINAL/CODEIN1 CAP PO; +HYDROXYZINE HCL10 MG PO; +PERCOCET 7.5/321 TAB PO; +PROZAC20 MG PO; +[UNRECOGNIZED DRUG - CODE] PO
== END 2016-11-10 02:00 | disposition home or self-care (01) ==
LOC: D.ER 22:35
DX: R07.9 Chest pain, unspecified (principal); J44.1 Chronic obstructive pulmonary disease with (acute) exacerbation; F17.200 Nicotine dependence, unspecified, uncomplicated; R00.1 Bradycardia, unspecified

== ENCOUNTER 2016-11-14 11:10 | Inpatient (IN) | payer MEDICARE, MEDICAID ==
[~2016-11-14] VITALS: Ht 152.4 cm; Wt 58.0 kg
[2016-11-14] VITALS (13 sets, daily range): BP systolic 131–169; BP diastolic 55–85; Ht 152.4 cm; Wt 58.0 kg
[2016-11-14 12:09] LABS: BASOPHILS 0.2 % (0-2); EOSINOPHILS 1.9 % (0-7); HEMATOCRIT 44.4 % (36.0-48.0); HEMOGLOBIN 14.9 g/dL (12-16); LYMPHOCYTES 41.9 % (15-50); MCH 29.4 pg (26.0-34.0); MCHC 33.6 g/dL (31.0-37.0); MCV 87.6 fL (80.0-100.0); MEAN PLATELET VOLUME 12.2 fL (7.4-10.4); MONOCYTES 10.1 % (2-11); NEUTROPHILS 45.9 % (40-80); PLATELET COUNT 220 10x3/uL (130-400); RBC 5.07 10x6/uL (4.00-5.40); WBC 4.3 10x3/uL (4.8-10.8)
[2016-11-14 12:48] LABS: ALBUMIN 3.8 g/dL (3.4-5.0); ALKALINE PHOSPHATASE 110 U/L (46-116); ALT (SGPT) 25 U/L (10-68); BILIRUBIN - TOTAL 0.36 mg/dL (0.2-1.3); CALC OSMOLALITY 278 mosm/kg (275-300); CALCIUM 9.3 mg/dL (8.5-10.1); CARBON DIOXIDE 28.3 mmol/L (21.0-32.0); CHLORIDE - SERUM 103 mmol/L (98-107); CREATININE - SERUM 0.8 mg/dL (0.6-1.3); POTASSIUM - SERUM 3.9 mmol/L (3.5-5.1); PROTEIN - SERUM 8.1 g/dL (6.4-8.2); SODIUM 141 mmol/L (136-145); UREA NITROGEN 8 mg/dL (7-18); eGFR NON AFRICAN AMERICAN 76 mL/min (90-120)
[2016-11-14 12:54] LABS: GLUCOSE 106 mg/dL (74-106)
[2016-11-14 13:05] LABS: CHOL - HDL RATIO 2.1 ratio (2.3-4.1); CHOLESTEROL, TOTAL 159 mg/dL (0-200); CKMB 0.9 U/L (0.0-3.6); CREATINE KINASE 76 UL (21-215); HDL CHOLESTEROL 75 mg/dL (32-96); LDL CHOLESTEROL 76 mg/dL (0-100); TRIGLYCERIDE 43 mg/dL (30-200)
[2016-11-14 13:07] LABS: TROPONIN-I 0.187 ng/mL (0.000-0.060)
[2016-11-14 15:24] LABS: APTT 33.1 SECONDS (22.8-39.4); INR 1.01 (0.85-1.17); PROTIME 13.1 SECONDS (11.6-15.0)
[2016-11-14 16:43] LABS: ANION GAP 18.9 mmol/L (8-16); CALCIUM 9.1 mg/dL (8.5-10.1); CARBON DIOXIDE 23.7 mmol/L (21.0-32.0); CREATININE - SERUM 0.9 mg/dL (0.6-1.3); POTASSIUM - SERUM 3.6 mmol/L (3.5-5.1)
--- NOTE | 2016-11-14 18:00 | NUR ---
PT TO CV 01 FROM ER. PT IS ALERT AND ORIENTED X 4. S1S2 NOTED, SR PER CM. LUNG SOUNDS CLR BILAT. PT HAS NC @ 2L. NITRO/HEPARIN INFUSING ON ARRIVAL. SEE SHIFT ASSESSMENT FOR FURTHER DETAILS. VSS.
--- NOTE | 2016-11-14 19:00 | NUR ---
Received patient awake in bed watching TV, Assessment completed per flowsheet. Patient AOx4, calm and cooperative. Eyes PERRLA @ 4mm with brisk response, sclera is white. S1/S2 noted NSR on Telemetry with HR 60, rhythmic and regular. Breathing is slightly shallow and unlabored on 2L via NC with O2 sat 98%, Lung sounds clear bilateral upper and mid with diminished lower. Abdomen is soft and flat, bowel sounds active x4. Patient ambulated to commode, 400ml clear yellow urine noted. Patient became winded with exertion, bedside commode placed for further use. Full ROM all extremities with all pulses palpable, cap refill < 3 sec. Patient denies pain or other needs at this time, all VSS and will continue to monitor.
--- NOTE | 2016-11-14 21:30 | NUR ---
PTT 135.8, held for 30 min and rate decreased by 200 unit/hr per protocol. Redraw @ 4248.
[2016-11-14 21:42] LABS: HEMATOCRIT 41.6 % (36.0-48.0); HEMOGLOBIN 13.5 g/dL (12-16); MCH 28.9 pg (26.0-34.0); MCHC 32.5 g/dL (31.0-37.0); MCV 89.1 fL (80.0-100.0); MEAN PLATELET VOLUME 12.1 fL (7.4-10.4); RBC 4.67 10x6/uL (4.00-5.40); RDW 14.2 % (11.5-14.5)
--- NOTE | 2016-11-14 22:50 | NUR ---
Reassessment completed per flowsheet, patient resting in bed with eyes open. S1/S2 noted NSR on telemetry with HR 60, rhythmic and regular. Breathing is slightly shallow and unlabored on 2L via NC, O2 sat 96%. C/O burning pain in chest 6/10, PRN Morphine given. No further needs at this time, all VSS and will reassess.
[2016-11-15] VITALS (24 sets, daily range): BP systolic 99–200; BP diastolic 50–109
--- NOTE | 2016-11-15 03:00 | NUR ---
PTT 177.9, rate decreased by 300 units/hr and held for 60 min per protocol.
--- NOTE | 2016-11-15 03:00 | NUR ---
Reassessment completed per flowsheet, patient resting in bed with eyes open. S1/S2 noted with PVC's on telemetry, Irregular with PRN Morphine given. Breathing is slightly shallow on 2L via NC with O2 sat 97%. EKG performed with results on chart. Notified Crystal RN of changes, will continue to monitor.
[2016-11-15 03:16] LABS: HEMATOCRIT 41.8 % (36.0-48.0); HEMOGLOBIN 13.9 g/dL (12-16); MCH 29.3 pg (26.0-34.0); MCHC 33.3 g/dL (31.0-37.0); MCV 88.2 fL (80.0-100.0); MEAN PLATELET VOLUME 12.3 fL (7.4-10.4); RBC 4.74 10x6/uL (4.00-5.40); WBC 7.2 10x3/uL (4.8-10.8)
[2016-11-15 03:24] LABS: ALBUMIN 3.3 g/dL (3.4-5.0); ALKALINE PHOSPHATASE 104 U/L (46-116); ALT (SGPT) 21 U/L (10-68); CALC OSMOLALITY 279 mosm/kg (275-300); CALCIUM 8.1 mg/dL (8.5-10.1); CARBON DIOXIDE 28.5 mmol/L (21.0-32.0); CHLORIDE - SERUM 102 mmol/L (98-107); CREATININE - SERUM 0.9 mg/dL (0.6-1.3); GLUCOSE 146 mg/dL (74-106); POTASSIUM - SERUM 3.1 mmol/L (3.5-5.1); PROTEIN - SERUM 7.6 g/dL (6.4-8.2); SODIUM 139 mmol/L (136-145); UREA NITROGEN 10 mg/dL (7-18); eGFR NON AFRICAN AMERICAN 66 mL/min (90-120)
--- NOTE | 2016-11-15 03:31 | NUR ---
UPDATE CALLED TO DR. HERNANDEZ, NEW ORDERS RECIEVED,
[2016-11-15 03:39] LABS: CREATINE KINASE 69 UL (21-215)
[2016-11-15 03:40] LABS: TROPONIN-I 0.178 ng/mL (0.000-0.060)
--- NOTE | 2016-11-15 10:59 | NUR ---
0731- VIDEO MACHINES MECHANIC SHOWS VTACH, CODE BLUE CALLED AND CPR INITIATED. SEE CODE BLUE SHEET. 0818- CODE STOPPED AND PT PRONOUNCED PER DR. HERNANDEZ. 0830- DR. HERNANDEZ IN CONFERENCE ROOM SPEAKING WITH FAMILY. 0845- BOARDING HOUSE COOK CALLED. 0855- TAFOYA NOTIFIED. 0930- POST MORTEM CARE PERFORMED. 0950- FAMILY AT BEDSIDE.
--- NOTE | 2016-11-15 12:10 | NUR ---
1100- FAMILY HAS CHOSEN HOME AND HAS SIGNED RELEASE AUTHORIZATION. 1200- HOME NOTIFIED.
--- NOTE | 2016-11-15 12:54 | NUR ---
BODY RELEASED TO HOME.
--- NOTE | 2016-11-17 13:32 | HP ---
PATIENT: WINNIE LEE MEDICAL RECORD: [id number] ACCOUNT: [id number] LOCATION:[facility] D.CV01 : 48 ADMISSION DATE: 11/14/16 HISTORY AND PHYSICAL EXAMINATION WINNIE Hayes (66yo, F) ID# [id number]. Date/Time11/01/2016 10:[id number] Dept.NPP[facility] ClinicProviderEDMARI HERNANDEZ MDInsuranceMed Primary: [employer] (MEDICARE REPLACEMENT/ADVANTAGE - HMO) Insurance # : [id number] Policy/Group # : [id number] Referring Provider Name : PRIYANKA MASON Employer Name : UNEMPLOYED Med Secondary: [place] Insurance # : [id number] Employer Name : UNEMPLOYED Prescription: CMX - Member is eligible. Prescription: [employer] - Member is eligible. Chief Complaint Coronary artery disease eval for CABG Patient's Care Team Referring Provider (): PRIYANKA MASON: [address] [place] [address], , Primary Care Provider: ARPIT MASON MD: [address] [place] [address], , Corridor Redevelopment Manager: JESIKA GALVAN MD: [address] [place] [phone], , Patient's Pharmacies [facility] [address] [place] [id number], , Vitals BP:142/80 sitting R arm 11/01/2016 10:01 am 144/84 sitting L arm 11/01/2016 10:03 amBP Cuff Size:adult 11/01/2016 10:01 am adult 11/01/2016 10:03 amHR:64,reg 11/01/2016 10:03 amHt:5 ft 2 in 11/01/2016 09:56 amWt:125 lbs 11/01/2016 10:03 amNotes:has had stents with Dr Galvan. Hx of heart disease for 5-6 years. Had stents, then came to ER for CP SOB Arm Pain, had bypass recommended 11/01/2016 10:05 amBMI:22.9 11/01/2016 10:03 amAllergies Reviewed Allergies PREDNISONETOMATONKDAMedications Reviewed Medications Advair Diskus 250 mcg-50 mcg/dose powder for inhalation Inhale 1 puff(s) twice a day by inhalation route for 30 days.07/04/16 Eric Dowd, BRIELLEspir-81 81 mg tablet,delayed release Take 1 tablet(s) every day by oral route.10/22/16 enteredKathy Wilsonclopidogrel 75 mg /24/17 filledCaremarkcyclobenzaprine 10 mg wbgpuw59/08/16 filledCaremarkdilTIAZem 120 mg tablet Take 1 tablet(s) every day by oral route.10/22/16 enteredKathy Wilsonfurosemide 20 mg tablet start filledKathy WilsonHYDROcodone 10 mg-acetaminophen 325 mg tablet Take 1 tablet(s) every 4 hours by oral route as needed.10/22/16 enteredKathy Wilsonisosorbide mononitrate ER 30 mg tablet,extended release 24 hr start filledKathy Wilsonmemantine 10 mg fcmqac35/17/17 filledCaremarkmetoprolol tartrate 50 mg tablet HISTORY AND PHYSICAL [id number] WINNIE LEE start filledKathy WilsonNitrostat 0.4 mg sublingual tablet start filledKathy Wilsonolmesartan 20 mg viyoke98/24/17 filledCaremarkoxyCODONE-acetaminophen 10 mg-325 mg /01/17 filledCaremarkoxyCODONE-acetaminophen 7.5 mg-325 mg edssbc86/03/17 filledCaremarkpantoprazole 40 mg tablet,delayed iffodzq04/24/17 filledCaremarkrosuvastatin 40 mg clivsp51/17/17 filledCaremarkVentolin HFA 90 mcg/actuation aerosol inhaler Inhale 2 puff(s) every 6 hours by inhalation route.09/24/16 filledCaremarkVaccines Reviewed Vaccines Vaccine TypeDateAmt.RouteSiteLot #Mfr.Exp. DateDate on VISVIS GivenVaccinatorInfluenzainfluenza, high dose [id number] Reviewed Problems Left carotid artery stenosis - Onset: 11/01/2016 Coronary atherosclerosis Family History Discussed Family History Non-contributory.Father- Heart diseaseMother- Heart diseaseSocial History Discussed Social History Cardiology and General Family history of heart disease?: Y Smoking Status: Former smoker High Cholesterol: Y High blood pressure: Y Exercise level: None Diabetes: Y General stress level: High Alcohol intake: Occasional Diet: Regular Marital status: Is blood transfusion acceptable in an emergency?: Y Tobacco-years of use: 19 Surgical History Reviewed Surgical History Other - 2016 - HEART STENTS X2 lower extremity stenting bilaterally 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) Obstetric History Obstetric History not reviewed (last reviewed 07/04/2016) Past Medical History Discussed Past Medical History Anemia: Y Angioplasty (balloon): Y Arrhythmia: Y - afib Asthma: Y Atrial fibrillation: Y COPD: Y HISTORY AND PHYSICAL [id number] WINNIE LEE Coronary Artery Disease: Y Depression: Y Heart Disease: Y Heart stents: Y High Blood Pressure: Y Hyperlipidemia: Y Hypertension: Y Pain in legs when walking: Y Peripheral Vascular Disease (PVD): Y Shortness of Breath: Y Swelling of Ankles, Feet or Hands: Y Notes: ANXIETY DISORDER, BLOOD CLOTS Documents for Discussion N/A Screening None recorded. HPI Coronary Artery Disease F/U Reported by patient. Severity: no chest discomfort with daily activities Context: non-smoker Associated Symptoms: sweats coronary artery disease with multiple stents ROS Patient reports back pain but reports no muscle aches, no muscle weakness, no arthralgias/joint pain, and no swelling in the extremities. She reports itching but reports no abnormal mole, no jaundice, and no rashes. She reports frequent or severe headaches but reports no loss of consciousness, no weakness, no numbness, no seizures, and no dizziness. She reports depression but reports no sleep disturbances, feeling safe in relationship, and no alcohol abuse. She reports easy bruising but reports no swollen glands. She reports no fever, no night sweats, no significant weight gain, no significant weight loss, and no exercise intolerance. She reports no dry eyes, no irritation, and no vision change. She reports no difficul ty hearing and no ear pain. She reports no frequent nosebleeds and no nose/sinus problems. She reports no sore throat, no bleeding gums, no snoring, no dry mouth, no mouth ulcers, no oral abnormalities, and no teeth problems. She reports no jugular vein d i stension and no swollen glands. She reports no arm pain on exertion, no shortness of breath when lying down, no palpitations, and no known heart murmur. She reports no cough, no wheezing, and no coughing up blood. She reports no abdominal pain, no vomitin g , normal appetite, no diarrhea, not vomiting blood, no nausea, and no constipation. She reports no incontinence, no difficulty urinating, no hematuria, and no increased frequency. She reports no fatigue. She reports no runny nose, no sinus pressure, no it ziyad, no hives, and no frequent sneezing. ROS as noted in the HPI Physical Exam Patient is a 66-year-old female. Constitutional: General Appearance: well nourished and well developed. Level of Distress: no acute distress. Ambulation: ambulating normally. Ears: Cerumen negative. Canal: no erythema or swelling. Tympanic Membrane: no bulging or fluid and perforated. Nasal: Nasal Mucosa: no discharge, pink and moist, and boggy. Septum: not markedly HISTORY AND PHYSICAL [id number] WINNIE LEE deformed. Oropharynx: Lips, Teeth, and Gums normal dentiti on and lips. Oral Mucosa no ulcer, mass, inflammation, swelling, or leukoplakia and moist. Palate: normal hard palate and soft palate. Tongue: no erythema, lesions, enlargement, or swelling. Tonsils: no enlargement or lesions. Posterior Pharynx no enlarge ment, erythema, exudate, ulcers, mass, or white patches and cobblestoning. Neck: Neck: supple, trachea midline, no masses, and Full ROM. Thyroid: no enlargement or nodules and non-tender. Jugular Veins: no jugular venous distention or johns a waves present and normal jugular venous pressure; left carotid bruit. Lungs: Respiratory effort: unlabored. Inspection: normal curve and chest wall expansion; no deformity, tenderness, or swelling; and tactile fremitus present and equal on both sides. Auscultation: n o wheezing, rales/crackles, or rhonchi. Percussion: no dullness, flatness, or hyperresonance. Cardiovascular: Precordial Exam: non displaced focal PMI. Heart Rate And Rhythm: normal heart rate and rhythm. Heart Sounds: no gallop, click, physiologically split S2, or pericardial friction rub and normal s1. Systolic Murmur: grade 2/6 systolic murmur. Diastolic Murmur: no diastolic murmurs. Observation/Palpation of peripheral vascular system: no cyanosis or varicosity changes and normal dorsalis pedis and post erior tibialis. Abdomen: Inspection and Palpation: no tenderness or masses and soft and non-distended. Liver: non-tender and no hepatomegaly. Spleen: non-tender and no splenomegaly. Bowel Sounds: normal and no abdominal bruits. Lymphatic: no cervical lymph enlargement, axillary LAD, inguinal LAD, femoral LAD, supraclavicular LAD, or popliteal LAD. Musculoskeletal:: Motor Strength and Tone: normal bulk, tone, and motor strength. Gait and Station: normal gait, station, and tandem gait. Joints, Bones, and Muscles: no contractures, malalignment, tenderness, scoliosis, kyphosis, or bony abnormalities and normal movement of all extremities. Extremities: Inspection/Palpation of digits and nails: no clubbing, cyanosis, petechiae, ischemia, edema, or nodular lesions. Skin: Inspection and palpation: no rash, lesions, jaundice, ulcer, erythema, or induration and normal turgor. Neurologic: Mental Status/Orientation: oriented to person, place, problem/situation, and time. Mood/Affec t: normal mood and affect. Sensation sensation normal. Cranial Nerves cranial nerves II - XII intact. Deep Tendon Reflexes upper extremities positive and lower extremities positive. Assessment / Plan carotid stenosis Coronary artery disease 1. Coronary atherosclerosis I25.119: Atherosclerotic heart disease of [place] coronary artery with unspecified angina pectoris 2. Left carotid artery stenosis I65.22: Occlusion and stenosis of left carotid artery HISTORY AND PHYSICAL [id number] WINNIE LEE Discussion Notes carotid Doppler study Hepatitis screen hold Plavix 1 week prior to surgery RISA HERNANDEZ MD at 1332 CC: [id number] DICTATION DATE: 11/01/16 1000 AUDIO VISUAL AIDE: DM 11/14/16 1525 DIS IN 11/15/16 [facility] [address] [place] [address]
== END 2016-11-15 12:55 | DRG 303 ==
LOC: D.ER 11:10 → D.CVICU 15:28
PROVIDERS: Emergency Medicine; Physician Assistant; ADMIT Internal Medicine Cardiovascular Disease
PROC: 0BH17EZ Insertion of Endotracheal Airway into Trachea, Via Natural or Artificial Opening (ICD-10-PCS; principal; 2016-11-15)
PROC: 5A19054 Respiratory Ventilation, Single, Nonmechanical (ICD-10-PCS; 2016-11-15)
DX: I25.110 Atherosclerotic heart disease of native coronary artery with unstable angina pectoris (principal); I47.2 Ventricular tachycardia; I65.22 Occlusion and stenosis of left carotid artery; I10 Essential (primary) hypertension; I49.01 Ventricular fibrillation; Z82.49 Family history of ischemic heart disease and other diseases of the circulatory system; E78.00 Pure hypercholesterolemia, unspecified; E11.9 Type 2 diabetes mellitus without complications; Z87.891 Personal history of nicotine dependence; Z95.5 Presence of coronary angioplasty implant and graft